=== PATIENT | male | born 1965 | race Caucasian/White ===

== ENCOUNTER → 2016-04-21 | Outpatient (CLI) | payer OTHER ==
[~2016-04-21] MED LIST: ATENOLOL25 MG PO; AUGMENTIN 875 M1 TA1 PO; CARAFATE1 G1 PO; CEFADROXIL500 M1 PO; CEPHALEXIN500 M1 PO; CYCLOBENZAPRINE10 MG PO; DIFLUCAN150 MG PO; LEVOFLOXACIN500 MG PO; MOTRIN800 MG PO; Motrin,Rufen800 MG PO; NEXIUM40 MG/PACK PO; NEXIUM5 MG PO; NKHM; Nizoral 2%15 GM PO; OMEPRAZOLE40 MG PO; PEN-VEE K500 MG PO; PREDNISONE10 MG PO; PREDNISONE20 M1 PO; PRILOSEC20 M2 PO; ROBAXIN500 MG PO; SIMVASTATIN20 MG PO; TRAMADOL HCL50 MG PO; ULTRAM50 MG PO; VICODIN 5/500 505 MG PO; ZESTRIL2.5 MG PO; ZOCOR20 MG PO; ZOFRAN4 MG PO
== END | disposition home or self-care (01) ==
LOC: RAD 14:15
DX: M54.5 Low back pain (principal)

== ENCOUNTER → 2016-07-02 | Outpatient (CLI) | payer OTHER ==
[~2016-07-02] MED LIST changes: +PROTONIX20 MG PO
--- NOTE | ~2016-07-02 | ST ---
[place], [place] EXERCISE STRESS TEST REPORT NAME: PACO RM UNIT #: [id number] ROOM: DOCTOR: SANTOSH FORMAN MD BIRTHDATE: [birth year] DOS: 07/02/2016 REFERRING PHYSICIAN: Dr. Neetu Cruz REASON FOR STUDY: Chest discomfort. PROCEDURE: The patient exercised on a full Rusty protocol stress test for 11 minutes 7 seconds and achieved a maximum heart rate of 144, which represented 85% of his maximum predicted heart rate at a workload of 11.5 METs. He stopped for fatigue and had no chest pain. The resting heart rate of 59 cheri to 144. The resting blood pressure of 130/74 cheri to 180/70. There were no diagnostic electrocardiographic changes. Raygoza treadmill score was 11 consistent with a low risk of heart disease. IMPRESSION: 1. Excellent exercise capacity without chest pain or diagnostic electrocardiographic changes. 2. Normal heart rate and blood pressure response to exercise. 3. No significant arrhythmias noted. 4. Normal stress test consistent with low risk of coronary artery disease. SANTOSH FORMAN MD CM:STRESS:EXERCISE STRESS TEST REPORT [id number] SANTOSH FORMAN MD
== END | disposition home or self-care (01) ==
LOC: CARD 02:07
DX: R07.89 Other chest pain (principal); N52.9 Male erectile dysfunction, unspecified

== ENCOUNTER → 2016-10-17 | Outpatient (CLI) | payer OTHER ==
[2016-10-18 19:10] LABS: FOLLICLE STIMULATING HORMONE 21.3 mIU/mL (1.5-12.4); LUTEINIZING HORMONE 004283 5.4 mIU/mL (1.7-8.6)
== END ==
LOC: LAB 08:24
PROVIDERS: Internal Medicine
DX: E29.1 Testicular hypofunction (principal)

== ENCOUNTER 2017-02-27 19:55 | Emergency (ER) | payer OTHER ==
[~2017-02-27] VITALS: Ht 175.2 cm; Wt 81.6 kg
[2017-02-27] MEDS ORDERED: CEPHALEXIN500 M1 PO (22:04)
== END 2017-02-27 21:42 | disposition home or self-care (01) ==
LOC: ED 19:55
DX: S91.332A Puncture wound without foreign body, left foot, initial encounter (principal); F12.10 Cannabis abuse, uncomplicated; F17.200 Nicotine dependence, unspecified, uncomplicated; Z79.899 Other long term (current) drug therapy; W22.8XXA Striking against or struck by other objects, initial encounter; Y93.89 Activity, other specified; Y92.89 Other specified places as the place of occurrence of the external cause; Y99.9 Unspecified external cause status

== ENCOUNTER 2017-03-17 18:21 | Emergency (ER) | payer OTHER ==
[~2017-03-17] VITALS: Wt 81.6 kg
== END 2017-03-17 20:36 | disposition home or self-care (01) ==
LOC: ED 18:21
DX: S70.12XA Contusion of left thigh, initial encounter (principal); S00.83XA Contusion of other part of head, initial encounter; F12.10 Cannabis abuse, uncomplicated; Z79.899 Other long term (current) drug therapy; V89.2XXA Person injured in unspecified motor-vehicle accident, traffic, initial encounter; Y93.89 Activity, other specified; Y92.89 Other specified places as the place of occurrence of the external cause; Y99.8 Other external cause status

== ENCOUNTER → 2017-07-03 | Outpatient (CLI) | payer OTHER | END | disposition home or self-care (01) | LOC: LAB 14:20 | DX: R89.9 Unspecified abnormal finding in specimens from other organs, systems and tissues (principal) ==

== ENCOUNTER → 2017-07-03 | Outpatient (CLI) | payer OTHER ==
[2017-07-03 08:16] LABS: HEMATOCRIT 44.3 % (42.0-52.0); HEMOGLOBIN 14.5 g/dl (14.0-18.0); MEAN CELL VOLUME 93.1 fl (80.0-94.0); MEAN CORPUSCULAR HGB 30.5 pg (27.0-31.0); MEAN CORPUSCULAR HGB CONC 32.7 g/dl (33.0-37.0); MEAN PLATELET VOLUME 10.7 fl (9.6-12.3); RED BLOOD COUNT 4.76 10*6/uL (4.50-5.90); RED CELL DISTRI WIDTH 13.1 % (0-14.5); WHITE BLOOD COUNT 8.1 10*3/uL (4.8-10.8)
[2017-07-03 08:28] LABS: ALBUMIN 3.7 gm/dl (3.1-4.5); BUN 14 mg/dl (7-24); CHLORIDE 110 mmol/L (98-107); CHOLESTEROL 152 mg/dL (<200); CREATININE 1.18 mg/dL (0.70-1.30); HDL CHOLESTEROL 33 mg/dl (40-60); LDL CHOLESTEROL 96 mg/dL (9-159); POTASSIUM 3.8 mmol/L (3.5-5.1); SGOT/AST 17 IU/L (3-35); SGPT/ALT 24 U/L (12-78); SODIUM 142 mmol/L (136-145); TOTAL PROTEIN 7.3 gm/dL (6.4-8.2); TRIGLYCERIDES 116 mg/dl (<150); VLDL CHOLESTEROL 23 mg/dL (6-40)
[2017-07-03 08:36] LABS: FERRITIN 33.5 ng/mL (22.0-322.0)
[2017-07-03 08:37] LABS: ALKALINE PHOSPHATASE 89 U/L (45-117)
[2017-07-05 12:04] LABS: TESTOSTERONE FREE, (DIRECT) 12.7 pg/mL (7.2-24.0)
== END | disposition home or self-care (01) ==
LOC: LAB 07:17
DX: Z12.5 Encounter for screening for malignant neoplasm of prostate (principal); G25.81 Restless legs syndrome; E29.1 Testicular hypofunction; R79.89 Other specified abnormal findings of blood chemistry

== ENCOUNTER 2017-07-30 21:46 | Emergency (ER) | payer OTHER ==
[~2017-07-30] VITALS: Ht 175.2 cm; Wt 81.6 kg
[2017-07-30] MEDS ORDERED: PREDNISONE20 M1 PO (21:54)
== END 2017-07-30 22:06 | disposition home or self-care (01) ==
LOC: ED 21:46
DX: L23.7 Allergic contact dermatitis due to plants, except food (principal); F17.200 Nicotine dependence, unspecified, uncomplicated; F12.10 Cannabis abuse, uncomplicated; Z79.899 Other long term (current) drug therapy

== ENCOUNTER 2017-09-09 15:50 | Inpatient (IN) | payer OTHER ==
[~2017-09-09] VITALS: Ht 175.2 cm; Wt 73.6 kg
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
[2017-09-09 15:54] VITALS: BP 150/71
[2017-09-09 16:30] LABS: BASO % 0.3 % (0.0-1.0); HEMATOCRIT 44.4 % (42.0-52.0); HEMOGLOBIN 15.1 g/dl (14.0-18.0); LYMPH # 1.8 10*3/uL (1.3-4.4); LYMPH % 18.8 % (27.0-41.0); MEAN CELL VOLUME 91.9 fl (80.0-94.0); MEAN CORPUSCULAR HGB 31.3 pg (27.0-31.0); MEAN PLATELET VOLUME 10.6 fl (9.6-12.3); MONO # 0.4 10*3/uL (0.1-1.0); MONO % 4.5 % (3.0-9.0); NEUT # 7.4 10*3/uL (2.3-7.9); NEUT % 76.1 % (47.0-73.0); PLATELET COUNT AUTOMATED 239 10*3/uL (130-400); RED BLOOD COUNT 4.83 10*6/uL (4.50-5.90); RED CELL DISTRI WIDTH 13.2 % (0-14.5); WHITE BLOOD COUNT 9.7 10*3/uL (4.8-10.8)
[2017-09-09 16:38] LABS: ACT PARTIAL THROMBO TIME 20.2 SECONDS (20.8-31.5)
[2017-09-09 16:48] LABS: ALBUMIN 4.3 gm/dl (3.1-4.5); ALKALINE PHOSPHATASE 101 U/L (45-117); BUN 9 mg/dl (7-24); CHLORIDE 106 mmol/L (98-107); CREATININE 1.36 mg/dL (0.70-1.30); LIPASE 71 U/L (73-393); POTASSIUM 4.3 mmol/L (3.5-5.1); SGOT/AST 13 IU/L (3-35); SGPT/ALT 24 U/L (12-78); SODIUM 142 mmol/L (136-145); TOTAL PROTEIN 7.9 gm/dL (6.4-8.2)
[2017-09-09 16:49] LABS: TROPONIN I < 0.015 ng/ml (<0.045)
[2017-09-09 16:52] VITALS: BP 148/82
[2017-09-09 17:47] LABS: BILIRUBIN 1+ (NEGATIVE); BLOOD NEGATIVE (NEGATIVE); CLARITY SL CLOUDY (CLEAR); COLOR YELLOW (YELLOW); GLUCOSE NEGATIVE (NEGATIVE); KETONE 3+ (NEGATIVE); LEUKO ESTERASE NEGATIVE (NEGATIVE); NITRITE NEGATIVE (NEGATIVE); SPECIFIC GRAVITY 1.015 (1.005-1.030)
[2017-09-09 17:54] LABS: MUCOUS 1+; WBC 0-2 wbc/hpf (0-5)
[2017-09-09 18:00] VITALS: BP 140/71
[2017-09-09 18:18] LABS: URINE AMPHETAMINES < 1000 (1000ng/ml); URINE BARBITURATES < 200 (200ng/ml); URINE BENZODIAZEPINES < 200 (200ng/ml); URINE CANNABINOIDS (THC) > 50 (50ng/ml); URINE COCAINE < 300 (300ng/ml); URINE METHADONE < 300 (300ng/ml); URINE OPIATES < 300 (300ng/ml)
[2017-09-09 18:20] LABS: URINE PHENCYCLIDINE < 25 (25ng/ml)
[2017-09-09 19:12] VITALS: BP 142/80
[2017-09-09 20:15] VITALS: BP 98/54
[2017-09-10] VITALS: BP 96/60
[2017-09-10] MEDS ORDERED: ZANTAC 7575 M1 PO (01:53)
[2017-09-10 02:30] VITALS: BP 102/76
[2017-09-10 06:06] LABS: ALBUMIN 3.3 gm/dl (3.1-4.5); BUN 10 mg/dl (7-24); CHLORIDE 110 mmol/L (98-107); CHOLESTEROL 127 mg/dL (<200); POTASSIUM 3.6 mmol/L (3.5-5.1); SGOT/AST 17 IU/L (3-35); SGPT/ALT 16 U/L (12-78); SODIUM 144 mmol/L (136-145)
[2017-09-10 06:15] LABS: ALKALINE PHOSPHATASE 75 U/L (45-117); BASO % 0.2 % (0.0-1.0); CREATININE 1.09 mg/dL (0.70-1.30); EOS % 0.2 % (1.0-4.0); HDL CHOLESTEROL 31 mg/dl (40-60); LDL CHOLESTEROL 78 mg/dL (9-159); LYMPH # 2.1 10*3/uL (1.3-4.4); MEAN CELL VOLUME 92.9 fl (80.0-94.0); MEAN CORPUSCULAR HGB CONC 33.3 g/dl (33.0-37.0); MEAN PLATELET VOLUME 11.5 fl (9.6-12.3); MONO # 1.1 10*3/uL (0.1-1.0); MONO % 9.5 % (3.0-9.0); NEUT # 8.6 10*3/uL (2.3-7.9); NEUT % 71.8 % (47.0-73.0); PLATELET COUNT AUTOMATED 204 10*3/uL (130-400); RED CELL DISTRI WIDTH 13.4 % (0-14.5); THYROID STIM HORMONE (HS) 0.541 uIU/ml (0.358-4.75); TOTAL PROTEIN 6.3 gm/dL (6.4-8.2); TRIGLYCERIDES 90 mg/dl (<150); VLDL CHOLESTEROL 18 mg/dL (6-40); WHITE BLOOD COUNT 11.9 10*3/uL (4.8-10.8)
[2017-09-10 07:26] LABS: VITAMIN D, 25-HYDROXY 34.3 ng/mL (30-100)
[2017-09-10 08:00] VITALS: BP 92/64
[2017-09-10 16:00] VITALS: BP 107/69
[2017-09-10 20:00] VITALS: BP 131/79
[2017-09-11] VITALS (9 sets, daily range): BP systolic 89–146; BP diastolic 49–85
[2017-09-11 07:43] LABS: BASO % 0.3 % (0.0-1.0); EOS % 0.2 % (1.0-4.0); HEMOGLOBIN 12.2 g/dl (14.0-18.0); LYMPH # 3.9 10*3/uL (1.3-4.4); LYMPH % 42.3 % (27.0-41.0); MEAN CELL VOLUME 93.5 fl (80.0-94.0); MEAN CORPUSCULAR HGB 31.7 pg (27.0-31.0); MEAN CORPUSCULAR HGB CONC 33.9 g/dl (33.0-37.0); MEAN PLATELET VOLUME 11.2 fl (9.6-12.3); MONO % 11.1 % (3.0-9.0); NEUT # 4.2 10*3/uL (2.3-7.9); NEUT % 45.9 % (47.0-73.0); PLATELET COUNT AUTOMATED 169 10*3/uL (130-400); RED BLOOD COUNT 3.85 10*6/uL (4.50-5.90); RED CELL DISTRI WIDTH 13.5 % (0-14.5); WHITE BLOOD COUNT 9.3 10*3/uL (4.8-10.8)
[2017-09-11 08:22] LABS: CHLORIDE 111 mmol/L (98-107); POTASSIUM 3.5 mmol/L (3.5-5.1); SODIUM 142 mmol/L (136-145)
[2017-09-11 08:38] LABS: ALBUMIN 3.2 gm/dl (3.1-4.5); ALKALINE PHOSPHATASE 68 U/L (45-117); BUN 6 mg/dl (7-24); CREATININE 1.04 mg/dL (0.70-1.30); PHOSPHOROUS 2.4 mg/dL (2.5-4.9); SGOT/AST 20 IU/L (3-35); SGPT/ALT 22 U/L (12-78); TOTAL PROTEIN 6.1 gm/dL (6.4-8.2)
[2017-09-12] VITALS: BP 125/83
[2017-09-12 06:16] LABS: HEMATOCRIT 38.2 % (42.0-52.0); HEMOGLOBIN 12.7 g/dl (14.0-18.0); MEAN CELL VOLUME 93.4 fl (80.0-94.0); MEAN CORPUSCULAR HGB 31.1 pg (27.0-31.0); MEAN CORPUSCULAR HGB CONC 33.2 g/dl (33.0-37.0); MEAN PLATELET VOLUME 11.2 fl (9.6-12.3); PLATELET COUNT AUTOMATED 165 10*3/uL (130-400); RED BLOOD COUNT 4.09 10*6/uL (4.50-5.90); RED CELL DISTRI WIDTH 13.2 % (0-14.5); WHITE BLOOD COUNT 12.1 10*3/uL (4.8-10.8)
[2017-09-12 06:39] LABS: BUN 5 mg/dl (7-24); CHLORIDE 108 mmol/L (98-107); CREATININE 1.12 mg/dL (0.70-1.30); POTASSIUM 3.7 mmol/L (3.5-5.1); SODIUM 142 mmol/L (136-145)
[2017-09-12 06:57] LABS: TOTAL CELLS COUNTED 100 #CELLS
[2017-09-12 06:58] LABS: PLATELET SUFFICIENCY NORMAL (NORMAL)
[2017-09-12 08:00] VITALS: BP 114/67
== END 2017-09-12 13:40 | disposition home or self-care (01) | DRG 391 ==
LOC: ED 15:50 → 4E 18:26 → EDHOLD 18:26 → 4E 19:27
PROVIDERS: Internal Medicine Hospice and Palliative Medicine; Physician Assistant
PROC: 0DJD8ZZ Inspection of Lower Intestinal Tract, Via Natural or Artificial Opening Endoscopic (ICD-10-PCS; principal; 2017-09-11)
DX: A08.4 Viral intestinal infection, unspecified (principal); N17.0 Acute kidney failure with tubular necrosis; I42.8 Other cardiomyopathies; E87.2 Acidosis; E83.39 Other disorders of phosphorus metabolism; E44.1 Mild protein-calorie malnutrition; I42.9 Cardiomyopathy, unspecified; E87.8 Other disorders of electrolyte and fluid balance, not elsewhere classified; R82.2 Biliuria; R80.9 Proteinuria, unspecified; R82.4 Acetonuria; I10 Essential (primary) hypertension; E78.5 Hyperlipidemia, unspecified; K29.50 Unspecified chronic gastritis without bleeding; K21.9 Gastro-esophageal reflux disease without esophagitis; I25.5 Ischemic cardiomyopathy; F12.10 Cannabis abuse, uncomplicated; F17.200 Nicotine dependence, unspecified, uncomplicated; D64.9 Anemia, unspecified; E80.6 Other disorders of bilirubin metabolism; R73.9 Hyperglycemia, unspecified; F12.988 Cannabis use, unspecified with other cannabis-induced disorder; Z71.6 Tobacco abuse counseling; Z87.81 Personal history of (healed) traumatic fracture; Z87.891 Personal history of nicotine dependence; Z80.42 Family history of malignant neoplasm of prostate; Z81.8 Family history of other mental and behavioral disorders

== ENCOUNTER → 2018-12-25 | Outpatient (CLI) | payer BC ==
[~2018-12-25] MED LIST changes: +PHENERGAN25 M3 PO; +ZANTAC 7575 M1 PO
[2018-12-25 09:52] LABS: HEMATOCRIT 45.7 % (42.0-52.0); HEMOGLOBIN 15.2 g/dl (14.0-18.0); MEAN CELL VOLUME 95.4 fl (80.0-94.0); MEAN CORPUSCULAR HGB 31.7 pg (27.0-31.0); MEAN CORPUSCULAR HGB CONC 33.3 g/dl (33.0-37.0); MEAN PLATELET VOLUME 10.3 fl (9.6-12.3); RED BLOOD COUNT 4.79 10*6/uL (4.50-5.90); RED CELL DISTRI WIDTH 13.5 % (0-14.5); WHITE BLOOD COUNT 8.3 10*3/uL (4.8-10.8)
[2018-12-25 10:10] LABS: ALBUMIN 3.9 gm/dl (3.1-4.5); ALKALINE PHOSPHATASE 93 U/L (45-117); BUN 12 mg/dl (7-24); CHLORIDE 108 mmol/L (98-107); CHOLESTEROL 164 mg/dL (<200); CREATININE 1.12 mg/dL (0.70-1.30); HDL CHOLESTEROL 36 mg/dl (40-60); LDL CHOLESTEROL 107 mg/dL (9-159); POTASSIUM 4.1 mmol/L (3.5-5.1); SGOT/AST 11 IU/L (3-35); SGPT/ALT 25 U/L (12-78); SODIUM 140 mmol/L (136-145); TOTAL PROTEIN 7.8 gm/dL (6.4-8.2); TRIGLYCERIDES 103 mg/dl (<150); VLDL CHOLESTEROL 21 mg/dL (6-40)
== END | disposition home or self-care (01) ==
LOC: LAB 09:03
PROVIDERS: Physician Assistant
DX: F52.21 Male erectile disorder (principal); K29.60 Other gastritis without bleeding; E78.00 Pure hypercholesterolemia, unspecified; F32.9 Major depressive disorder, single episode, unspecified

== ENCOUNTER 2019-05-31 08:51 | Inpatient (IN) | payer BC ==
[~2019-05-31] VITALS: Ht 175.2 cm; Wt 74.4 kg
[2019-05-31] VITALS (7 sets, daily range): BP systolic 91–156; BP diastolic 46–77
[2019-05-31 09:41] LABS: BASO % 0.3 % (0.0-1.0); EOS % 0.3 % (1.0-4.0); HEMATOCRIT 42.8 % (42.0-52.0); HEMOGLOBIN 14.6 g/dl (14.0-18.0); LYMPH # 3.3 10*3/uL (1.3-4.4); LYMPH % 26.3 % (27.0-41.0); MEAN CELL VOLUME 92.6 fl (80.0-94.0); MEAN CORPUSCULAR HGB 31.6 pg (27.0-31.0); MEAN CORPUSCULAR HGB CONC 34.1 g/dl (33.0-37.0); MONO # 1.1 10*3/uL (0.1-1.0); MONO % 8.6 % (3.0-9.0); NEUT # 7.9 10*3/uL (2.3-7.9); NEUT % 64.3 % (47.0-73.0); PLATELET COUNT AUTOMATED 260 10*3/uL (130-400); RED BLOOD COUNT 4.62 10*6/uL (4.50-5.90); RED CELL DISTRI WIDTH 13.3 % (0-14.5); WHITE BLOOD COUNT 12.4 10*3/uL (4.8-10.8)
[2019-05-31 10:02] LABS: ALBUMIN 4.1 gm/dl (3.1-4.5); ALKALINE PHOSPHATASE 92 U/L (45-117); BUN 19 mg/dl (7-24); CHLORIDE 106 mmol/L (98-107); CREATININE 1.58 mg/dL (0.70-1.30); LIPASE 409 U/L (73-393); SGOT/AST 14 IU/L (3-35); SGPT/ALT 26 U/L (12-78); SODIUM 139 mmol/L (136-145); TOTAL PROTEIN 7.8 gm/dL (6.4-8.2)
--- NOTE | 2019-05-31 10:19 | NUR ---
LYING IN BED LEFT LATERAL. TELLS ME PHENERGAN AND PROTONIX "STARTING TO WORK". REQUESTING TO WAIT FOR GI COCKTAIL.
--- NOTE | 2019-05-31 10:41 | NUR ---
PT TO CT AT THIS TIME
--- NOTE | 2019-05-31 11:12 | NUR ---
RESTING IN BED QUIETLY WITH EYES CLOSED. TELLS ME FEELING BETTER. REMINDED OF NEED TO URINATE FOR SPECIMIN.
[2019-05-31 12:13] LABS: CLARITY SL CLOUDY (CLEAR); COLOR YELLOW (YELLOW)
[2019-05-31 12:14] LABS: BILIRUBIN NEGATIVE (NEGATIVE); BLOOD NEGATIVE (NEGATIVE); GLUCOSE NEGATIVE (NEGATIVE); KETONE 3+ (NEGATIVE); LEUKO ESTERASE NEGATIVE (NEGATIVE); NITRITE NEGATIVE (NEGATIVE); SPECIFIC GRAVITY 1.025 (1.005-1.030); UROBILINOGEN 0.2 E.U./dl (0.2-1.0); WBC 0-2 wbc/hpf (0-5)
[2019-05-31 12:15] LABS: MUCOUS 2+
--- NOTE | 2019-05-31 12:17 | NUR ---
PT TO US AT THIS TIME.
--- NOTE | 2019-05-31 13:50 | NUR ---
A 53, admitted to 5E, under the services of OTONIEL Reeves DO with a diagnosis of GASTRITIS . Chief complaint is NAUSEA AND DRY6 HEAVING'. Patient arrived via WHEELCHAIR from ER. Monitor applied. Initial assessment completed. Vital signs taken and recorded. OTONIEL REEVES DO notified of admission to the unit. Orders received. See assessment for past medical history, medications and allergies. Patient and/or family oriented to unit. [facility] visitation policy reviewed. Clothing/patient valuable form completed. CATE MATHEWS
[2019-05-31] MEDS ORDERED: CITALOPRAM20 MG PO (14:03)
--- NOTE | 2019-05-31 14:30 | NUR ---
DR KING NOTIFIED OF NEW CONSULT FOR GASTRITIS.ORDERS RECIEVED.
--- NOTE | 2019-05-31 14:34 | NUR ---
NOTIFIED DR NAILS MED RECONCILIATION WAS COMPLETE.
[2019-06-01] VITALS (10 sets, daily range): BP systolic 84–149; BP diastolic 43–81
--- NOTE | 2019-06-01 02:01 | NUR ---
24 HR chart check completed.
[2019-06-01 06:22] LABS: BASO # 0.1 10*3/uL (0.0-0.1); BASO % 0.6 % (0.0-1.0); EOS # 0.2 10*3/uL (0.0-0.4); EOS % 1.7 % (1.0-4.0); HEMATOCRIT 37.8 % (42.0-52.0); HEMOGLOBIN 12.4 g/dl (14.0-18.0); LYMPH # 3.8 10*3/uL (1.3-4.4); LYMPH % 42.2 % (27.0-41.0); MEAN CELL VOLUME 94.5 fl (80.0-94.0); MEAN CORPUSCULAR HGB CONC 32.8 g/dl (33.0-37.0); MEAN PLATELET VOLUME 10.5 fl (9.6-12.3); MONO % 10.6 % (3.0-9.0); NEUT # 4.1 10*3/uL (2.3-7.9); NEUT % 44.7 % (47.0-73.0); PLATELET COUNT AUTOMATED 205 10*3/uL (130-400); RED CELL DISTRI WIDTH 13.6 % (0-14.5); WHITE BLOOD COUNT 9.1 10*3/uL (4.8-10.8)
[2019-06-01 06:51] LABS: ACT PARTIAL THROMBO TIME 24.9 SECONDS (20.0-32.1)
[2019-06-01 06:52] LABS: ALBUMIN 3.2 gm/dl (3.1-4.5); BUN 15 mg/dl (7-24); CHLORIDE 114 mmol/L (98-107); CHOLESTEROL 144 mg/dL (<200); CREATININE 1.26 mg/dL (0.70-1.30); FREE T4 1.02 ng/dl (0.76-1.46); PHOSPHOROUS 2.8 mg/dL (2.5-4.9); POTASSIUM 3.9 mmol/L (3.5-5.1); SGOT/AST 13 IU/L (3-35); SGPT/ALT 20 U/L (12-78); SODIUM 144 mmol/L (136-145)
--- NOTE | 2019-06-01 07:00 | NUR ---
VITALS STABLE. ALERT AND ORIENTED X 3. NANDO. CAPILLARY REFILL < 3 SECONDS. SKIN TURGOR NON-TENTING. HEART SOUNDS NORMAL, SINUS BRADYCARDIA- RATE OF 54. BLOOD PRESSURE 118/78. LUNGS CLEAR THROUHGOUT. RESPIRATIONS EASY AND NON-LABORED. PO2 98% ON R/A. ABDOMEN SOFT, NON-TENDER, NON-DISTENDED. BOWEL SOUNDS X 4. IV IN RIGHT ARM INTACT. NO COMPLAINTS AT THIS TIME. WILL CONTINUE TO ASSESS. DANAE GEORGECC
[2019-06-01 07:01] LABS: ALKALINE PHOSPHATASE 67 U/L (45-117); HDL CHOLESTEROL 28 mg/dl (40-60); LDL CHOLESTEROL 90 mg/dL (9-159); THYROID STIM HORMONE (HS) 0.841 uIU/ml (0.358-4.75); TOTAL PROTEIN 6.1 gm/dL (6.4-8.2); TRIGLYCERIDES 132 mg/dl (<150); VLDL CHOLESTEROL 26 mg/dL (6-40)
[2019-06-01 07:43] LABS: VITAMIN D, 25-HYDROXY 33.3 ng/mL (30-100)
--- NOTE | 2019-06-01 10:24 | NUR ---
DR NAILS NOTIFIED THAT PT HAS INCREASED AGITATION AND EXPRESSES THAT HE NEEDS TO LEAVE BECAUSE HE "HAS SO MUCH TO DO AT HOME". PT IS SCHEDULED FOR EGD TODAY AND IS UPDATED ON PLAN OF CARE. NEW ORDERS RECEIVED FOR 0.25 ATIVAN AT THIS TIME. WILL ADD ORDER AND NOTIFY PATIENT.
--- NOTE | 2019-06-01 10:46 | NUR ---
PT TO SURGERY VIA BED. CONDITION STABLE. DANAE YU SPNRCC
--- NOTE | 2019-06-01 13:00 | NUR ---
THE PATIENT HAS RETURNED FROM SURGERY AT THIS TIME. PATIENTS VITAL SIGNS ARE STABLE AT THIS TIME. HE IS A&OX3. NANDO. HEART SOUNDS ARE NORMAL. LUNG SOUNDS ARE CLEAR THROUGHOUT. THERE IS NO STRIDOR PRESENT. ABDOMEN SOFT, NON TENDER, NON DISTENDED. BSX4. CAPILLARY REFILL IS LESS THAN 3 SECONDS. IV INTACT TO THE RIGHT ARM WITH NS INFUSING. UPON ARRIVAL BACK TO THE FLOOR HE WAS COMPLAINING OF NAUSEA WITH SCANT EMESIS EPISODES. PATINET RESTING IN BED AT THIS TIME. ARNOL CHAUDHARY SPJULIOCC
--- NOTE | 2019-06-01 13:06 | NUR ---
PATIENT WAS MEDICATED WITH ZOFRAN 4MG IVP BY SOLEDAD LEVY RN FOR COMPLAINTS OF NAUSEA WITH SCANT EPISODES OF EMESIS. WILL CONTINUE TO MONITOR PATIENT. ARNOL NIETO
--- NOTE | 2019-06-01 13:14 | NUR ---
PT RETURNS FROM SURGERY. REPORT RECEIVED FROM MARIBEL COLLADO. ORDERS GIVEN FOR PT TO BE GERD DIET.
--- NOTE | 2019-06-01 13:26 | NUR ---
ORDERS FOR PROTONIX 40 MG PO ADDED PER ORDERS RECEIVED VIA SURGERY, PER DR KING REQUEST.
--- NOTE | 2019-06-01 15:02 | NUR ---
PT STATES THAT HE IS NAUSEOUS AND HAS HAD ONE EPISODE OF EMESIS. DR NAILS NOTIFIED AND ORDERS OBTAINED FOR PHENERGAN 6.25MG IV X 1 NOW. WILL ADMINISTER WHEN AVAILABLE TO PULL.
--- NOTE | 2019-06-01 15:13 | NUR ---
case management received a call from Maria Antonia at patient's insurance, she stated there is no auth required until patient is in the facility 6 days, if he remains in the facility he will need clinicals send, case management will follow
--- NOTE | 2019-06-01 15:26 | NUR ---
PT GIVEN PHENERGAN AT THIS TIME. WILL MONITOR FOR EFFECTIVENESS. CALL LIGHT IN REACH.
[2019-06-02] VITALS: BP 103/59
[2019-06-02 06:32] LABS: BASO # 0.1 10*3/uL (0.0-0.1); BASO % 0.5 % (0.0-1.0); EOS # 0.2 10*3/uL (0.0-0.4); HEMATOCRIT 40.3 % (42.0-52.0); HEMOGLOBIN 13.1 g/dl (14.0-18.0); LYMPH # 3.5 10*3/uL (1.3-4.4); LYMPH % 34.5 % (27.0-41.0); MEAN CELL VOLUME 93.1 fl (80.0-94.0); MEAN CORPUSCULAR HGB 30.3 pg (27.0-31.0); MEAN CORPUSCULAR HGB CONC 32.5 g/dl (33.0-37.0); MEAN PLATELET VOLUME 10.6 fl (9.6-12.3); MONO # 1.2 10*3/uL (0.1-1.0); MONO % 11.6 % (3.0-9.0); NEUT # 5.2 10*3/uL (2.3-7.9); NEUT % 51.2 % (47.0-73.0); PLATELET COUNT AUTOMATED 215 10*3/uL (130-400); RED BLOOD COUNT 4.33 10*6/uL (4.50-5.90)
[2019-06-02 07:01] LABS: ALBUMIN 3.4 gm/dl (3.1-4.5); ALKALINE PHOSPHATASE 70 U/L (45-117); BUN 10 mg/dl (7-24); CHLORIDE 112 mmol/L (98-107); CREATININE 1.28 mg/dL (0.70-1.30); POTASSIUM 3.9 mmol/L (3.5-5.1); SGOT/AST 11 IU/L (3-35); SGPT/ALT 21 U/L (12-78); SODIUM 144 mmol/L (136-145); TOTAL PROTEIN 6.5 gm/dL (6.4-8.2)
[2019-06-02 08:00] VITALS: BP 128/69; BP 130/80
--- NOTE | 2019-06-02 09:00 | NUR ---
[employer] Supervisor in to talk to patient. Patient states lives at home with alone. There are no steps in the home. Physician: anjana smith [facility] Patient's level of ADLs: INDEPENDENT Patient has working utilities: all working DME: none Follow-up physician's appointment after d/c: will be made by hospitalist nurse director upon discharge Does patient want to access PORTAL?: no Discharge plan discussed with patient,, he states he is indepenedent in adls and ambulation, works, drives, he states he will return home when medically stable and denies any home needs. KELLEE BARRY
[2019-06-02] MEDS ORDERED: PROTONIX40 MG PO (11:57)
[2019-06-02] MEDS ORDERED: Carafate1 GM PO (11:57)
--- NOTE | 2019-06-02 12:11 | NUR ---
Discharge instructions reviewed with patient/family. Patient receptive and verbalizes understanding. Follow-up care arranged. Written instructions given to patient/family. PRESCRIPTIONS SENT TO PHARMACY, PT TO [facility]PERATOR. AMBULATORY OFF FLOOR. HEPLOCK DISCONTINUED. EZRA MCMAHON
== END 2019-06-02 12:11 | disposition home or self-care (01) | DRG 380 ==
LOC: ED 08:51 → 5E 12:06 → EDHOLD 12:06 → 5E 13:30
PROVIDERS: Internal Medicine; Nurse Practitioner Family; ADMIT Internal Medicine
PROC: 0DB38ZX Excision of Lower Esophagus, Via Natural or Artificial Opening Endoscopic, Diagnostic (ICD-10-PCS; principal; 2019-06-01)
PROC: 0DB68ZX Excision of Stomach, Via Natural or Artificial Opening Endoscopic, Diagnostic (ICD-10-PCS; principal; 2019-06-01)
DX: K22.10 Ulcer of esophagus without bleeding (principal); N17.0 Acute kidney failure with tubular necrosis; E87.2 Acidosis; R17 Unspecified jaundice; F10.99 Alcohol use, unspecified with unspecified alcohol-induced disorder; I42.8 Other cardiomyopathies; E44.1 Mild protein-calorie malnutrition; R73.9 Hyperglycemia, unspecified; F17.210 Nicotine dependence, cigarettes, uncomplicated; E78.5 Hyperlipidemia, unspecified; I10 Essential (primary) hypertension; K21.9 Gastro-esophageal reflux disease without esophagitis; K29.50 Unspecified chronic gastritis without bleeding; F12.988 Cannabis use, unspecified with other cannabis-induced disorder; D53.9 Nutritional anemia, unspecified; E87.8 Other disorders of electrolyte and fluid balance, not elsewhere classified; E83.41 Hypermagnesemia; N40.0 Benign prostatic hyperplasia without lower urinary tract symptoms; J45.909 Unspecified asthma, uncomplicated; F32.9 Major depressive disorder, single episode, unspecified; Z68.24 Body mass index [BMI] 24.0-24.9, adult; Z71.6 Tobacco abuse counseling; Z79.899 Other long term (current) drug therapy; Z83.3 Family history of diabetes mellitus; Z80.0 Family history of malignant neoplasm of digestive organs; Z80.42 Family history of malignant neoplasm of prostate; Z80.49 Family history of malignant neoplasm of other genital organs

== ENCOUNTER → 2019-11-05 | Outpatient (CLI) | payer BC ==
[~2019-11-05] MED LIST changes: +CITALOPRAM20 MG PO; +Carafate1 GM PO; +PROTONIX40 MG PO
[2019-11-05 11:36] LABS: HEMATOCRIT 43.5 % (42.0-52.0); MEAN CELL VOLUME 92.4 fl (80.0-94.0); MEAN CORPUSCULAR HGB 30.6 pg (27.0-31.0); MEAN CORPUSCULAR HGB CONC 33.1 g/dl (33.0-37.0); MEAN PLATELET VOLUME 10.1 fl (9.6-12.3); RED BLOOD COUNT 4.71 10*6/uL (4.50-5.90); RED CELL DISTRI WIDTH 13.2 % (0-14.5); WHITE BLOOD COUNT 7.8 10*3/uL (4.8-10.8)
[2019-11-05 12:05] LABS: ALBUMIN 3.8 gm/dl (3.1-4.5); ALKALINE PHOSPHATASE 82 U/L (45-117); BUN 14 mg/dl (7-24); CHLORIDE 110 mmol/L (98-107); CHOLESTEROL 154 mg/dL (<200); CREATININE 1.16 mg/dL (0.70-1.30); HDL CHOLESTEROL 40 mg/dl (40-60); LDL CHOLESTEROL 99 mg/dL (9-159); POTASSIUM 4.1 mmol/L (3.5-5.1); SGOT/AST 19 IU/L (3-35); SGPT/ALT 28 U/L (12-78); SODIUM 139 mmol/L (136-145); TOTAL PROTEIN 7.6 gm/dL (6.4-8.2); TRIGLYCERIDES 75 mg/dl (<150); VLDL CHOLESTEROL 15 mg/dL (6-40)
== END | disposition home or self-care (01) ==
LOC: LAB 11:04
PROVIDERS: Physician Assistant
DX: E78.00 Pure hypercholesterolemia, unspecified (principal); F17.210 Nicotine dependence, cigarettes, uncomplicated; N52.9 Male erectile dysfunction, unspecified

== ENCOUNTER 2020-05-09 17:39 | Emergency (ER) | payer BC ==
[~2020-05-09] VITALS: Ht 175.2 cm; Wt 77.6 kg
[2020-05-09 18:23] LABS: BASO % 0.2 % (0.0-1.0); EOS % 0.1 % (1.0-4.0); HEMATOCRIT 41.7 % (42.0-52.0); LYMPH % 19.9 % (27.0-41.0); MEAN CELL VOLUME 89.7 fl (80.0-94.0); MEAN CORPUSCULAR HGB 30.3 pg (27.0-31.0); MEAN CORPUSCULAR HGB CONC 33.8 g/dl (33.0-37.0); MEAN PLATELET VOLUME 10.5 fl (9.6-12.3); MONO # 1.3 10*3/uL (0.1-1.0); MONO % 8.3 % (3.0-9.0); NEUT # 10.8 10*3/uL (2.3-7.9); NEUT % 71.2 % (47.0-73.0); PLATELET COUNT AUTOMATED 235 10*3/uL (130-400); RED BLOOD COUNT 4.65 10*6/uL (4.50-5.90); RED CELL DISTRI WIDTH 12.9 % (0-14.5); WHITE BLOOD COUNT 15.2 10*3/uL (4.8-10.8)
[2020-05-09 18:37] LABS: ALBUMIN 3.9 gm/dl (3.1-4.5); ALKALINE PHOSPHATASE 93 U/L (45-117); BUN 17 mg/dl (7-24); CHLORIDE 104 mmol/L (98-107); CREATININE 1.28 mg/dL (0.70-1.30); POTASSIUM 3.9 mmol/L (3.5-5.1); SGOT/AST 14 IU/L (3-35); SGPT/ALT 31 U/L (12-78); SODIUM 136 mmol/L (136-145); TOTAL PROTEIN 7.6 gm/dL (6.4-8.2)
== END 2020-05-09 19:33 | disposition home or self-care (01) ==
LOC: ED 17:39
PROVIDERS: Nurse Practitioner Family
DX: R11.2 Nausea with vomiting, unspecified (principal); F17.200 Nicotine dependence, unspecified, uncomplicated; F12.10 Cannabis abuse, uncomplicated; Z79.899 Other long term (current) drug therapy

== ENCOUNTER → 2020-08-04 | Outpatient (CLI) | payer BC ==
[2020-08-04 10:05] LABS: HEMATOCRIT 44.4 % (42.0-52.0); MEAN CELL VOLUME 94.9 fl (80.0-94.0); MEAN CORPUSCULAR HGB 31.2 pg (27.0-31.0); MEAN CORPUSCULAR HGB CONC 32.9 g/dl (33.0-37.0); MEAN PLATELET VOLUME 10.6 fl (9.6-12.3); RED BLOOD COUNT 4.68 10*6/uL (4.50-5.90); RED CELL DISTRI WIDTH 13.7 % (0-14.5); WHITE BLOOD COUNT 8.1 10*3/uL (4.8-10.8)
[2020-08-04 10:24] LABS: ALBUMIN 3.7 gm/dl (3.1-4.5); BUN 16 mg/dl (7-24); CHLORIDE 109 mmol/L (98-107); CHOLESTEROL 180 mg/dL (<200); CREATININE 1.19 mg/dL (0.70-1.30); POTASSIUM 4.4 mmol/L (3.5-5.1); SGOT/AST 13 IU/L (3-35); SGPT/ALT 23 U/L (12-78); SODIUM 141 mmol/L (136-145); TOTAL PROTEIN 7.4 gm/dL (6.4-8.2); TRIGLYCERIDES 121 mg/dl (<150); VLDL CHOLESTEROL 24 mg/dL (6-40)
[2020-08-04 10:25] LABS: ALKALINE PHOSPHATASE 92 U/L (45-117); HDL CHOLESTEROL 34 mg/dl (40-60); LDL CHOLESTEROL 122 mg/dL (9-159)
== END | disposition home or self-care (01) ==
LOC: LAB 09:10
PROVIDERS: ATTEND Physician Assistant
DX: K21.9 Gastro-esophageal reflux disease without esophagitis (principal); F41.9 Anxiety disorder, unspecified; Z12.5 Encounter for screening for malignant neoplasm of prostate; E78.00 Pure hypercholesterolemia, unspecified

== ENCOUNTER 2020-08-18 05:18 | Emergency (ER) | payer BC ==
[~2020-08-18] VITALS: Ht 175.2 cm; Wt 75.3 kg
[2020-08-18 06:28] LABS: BASO % 0.4 % (0.0-1.0); EOS % 0.3 % (1.0-4.0); HEMATOCRIT 40.8 % (42.0-52.0); LYMPH # 2.8 10*3/uL (1.3-4.4); MEAN CELL VOLUME 91.7 fl (80.0-94.0); MEAN CORPUSCULAR HGB 30.8 pg (27.0-31.0); MEAN CORPUSCULAR HGB CONC 33.6 g/dl (33.0-37.0); MEAN PLATELET VOLUME 10.2 fl (9.6-12.3); MONO % 10.1 % (3.0-9.0); NEUT # 5.9 10*3/uL (2.3-7.9); PLATELET COUNT AUTOMATED 238 10*3/uL (130-400); RED BLOOD COUNT 4.45 10*6/uL (4.50-5.90); RED CELL DISTRI WIDTH 13.1 % (0-14.5); WHITE BLOOD COUNT 9.8 10*3/uL (4.8-10.8)
[2020-08-18 06:41] LABS: ALBUMIN 3.6 gm/dl (3.1-4.5); ALKALINE PHOSPHATASE 93 U/L (45-117); BUN 17 mg/dl (7-24); CHLORIDE 108 mmol/L (98-107); CREATININE 1.31 mg/dL (0.70-1.30); POTASSIUM 3.8 mmol/L (3.5-5.1); SGOT/AST 11 IU/L (3-35); SGPT/ALT 22 U/L (12-78); SODIUM 139 mmol/L (136-145); TOTAL PROTEIN 7.4 gm/dL (6.4-8.2)
[2020-08-18] MEDS ORDERED: ZOFRAN4 MG PO (09:05)
[2020-08-18 10:26] LABS: BILIRUBIN Negative (Negative); BLOOD Negative (Negative); CLARITY Clear (Clear); COLOR Dark Yellow (Yellow); GLUCOSE Negative (Negative); KETONE 1+ (Negative); LEUKO ESTERASE Negative (Negative); NITRITE Negative (Negative); SPECIFIC GRAVITY >= 1.030 (1.001-1.030)
[2020-08-18 10:36] LABS: URINE AMPHETAMINES < 1000 (1000ng/ml); URINE BARBITURATES < 200 (200ng/ml); URINE BENZODIAZEPINES < 200 (200ng/ml); URINE CANNABINOIDS (THC) > 50 (50ng/ml); URINE COCAINE < 300 (300ng/ml); URINE METHADONE < 300 (300ng/ml); URINE OPIATES < 300 (300ng/ml)
[2020-08-18 10:38] LABS: URINE PHENCYCLIDINE < 25 (25ng/ml)
[2020-08-18 10:43] LABS: BACTERIA TRACE; MUCOUS 3+
== END 2020-08-18 11:04 | disposition home or self-care (01) ==
LOC: ED 05:18
PROVIDERS: Emergency Medicine
DX: R11.2 Nausea with vomiting, unspecified (principal); F12.10 Cannabis abuse, uncomplicated; K21.9 Gastro-esophageal reflux disease without esophagitis; E78.5 Hyperlipidemia, unspecified; F17.210 Nicotine dependence, cigarettes, uncomplicated; Z79.899 Other long term (current) drug therapy

== ENCOUNTER 2020-10-23 02:33 | Emergency (ER) | payer BC ==
[~2020-10-23] VITALS: Ht 177.8 cm; Wt 68.0 kg
[2020-10-23 03:28] LABS: BASO % 0.3 % (0.0-1.0); EOS % 0.3 % (1.0-4.0); HEMATOCRIT 40.2 % (42.0-52.0); LYMPH # 2.9 10*3/uL (1.3-4.4); LYMPH % 25.4 % (27.0-41.0); MEAN CELL VOLUME 91.4 fl (80.0-94.0); MEAN CORPUSCULAR HGB 30.7 pg (27.0-31.0); MEAN CORPUSCULAR HGB CONC 33.6 g/dl (33.0-37.0); MEAN PLATELET VOLUME 10.2 fl (9.6-12.3); MONO # 1.2 10*3/uL (0.1-1.0); MONO % 10.6 % (3.0-9.0); NEUT # 7.2 10*3/uL (2.3-7.9); NEUT % 63.1 % (47.0-73.0); PLATELET COUNT AUTOMATED 228 10*3/uL (130-400); RED CELL DISTRI WIDTH 13.4 % (0-14.5); WHITE BLOOD COUNT 11.4 10*3/uL (4.8-10.8)
[2020-10-23 03:45] LABS: ALBUMIN 3.6 gm/dl (3.1-4.5); ALKALINE PHOSPHATASE 90 U/L (45-117); BUN 15 mg/dl (7-24); CHLORIDE 111 mmol/L (98-107); CREATININE 1.22 mg/dL (0.70-1.30); LIPASE 255 U/L (73-393); POTASSIUM 3.4 mmol/L (3.5-5.1); SGOT/AST 9 IU/L (3-35); SGPT/ALT 21 U/L (12-78); SODIUM 139 mmol/L (136-145); TOTAL PROTEIN 7.1 gm/dL (6.4-8.2)
[2020-10-23] MEDS ORDERED: ZOFRAN4 MG PO (03:58)
[2020-10-24] MEDS ORDERED: PEPCID20 MG PO (14:23)
[2020-10-24] MEDS ORDERED: PHENERGAN25 M3 PO (14:23)
== END 2020-10-23 04:03 | disposition home or self-care (01) ==
LOC: ED 02:33
PROVIDERS: Internal Medicine
DX: R11.15 Cyclical vomiting syndrome unrelated to migraine (principal); E87.6 Hypokalemia; R10.10 Upper abdominal pain, unspecified; F17.200 Nicotine dependence, unspecified, uncomplicated; F12.10 Cannabis abuse, uncomplicated; Z79.899 Other long term (current) drug therapy

== ENCOUNTER 2020-10-24 10:12 | Emergency (ER) | payer BC ==
[~2020-10-24] VITALS: Wt 77.1 kg
[2020-10-24 10:43] LABS: BASO % 0.4 % (0.0-1.0); EOS # 0.1 10*3/uL (0.0-0.4); EOS % 0.5 % (1.0-4.0); HEMATOCRIT 40.9 % (42.0-52.0); LYMPH # 2.7 10*3/uL (1.3-4.4); LYMPH % 24.5 % (27.0-41.0); MEAN CELL VOLUME 90.3 fl (80.0-94.0); MEAN CORPUSCULAR HGB 30.9 pg (27.0-31.0); MEAN CORPUSCULAR HGB CONC 34.2 g/dl (33.0-37.0); MEAN PLATELET VOLUME 10.1 fl (9.6-12.3); MONO # 0.9 10*3/uL (0.1-1.0); MONO % 7.9 % (3.0-9.0); NEUT # 7.3 10*3/uL (2.3-7.9); NEUT % 66.4 % (47.0-73.0); PLATELET COUNT AUTOMATED 250 10*3/uL (130-400); RED BLOOD COUNT 4.53 10*6/uL (4.50-5.90); RED CELL DISTRI WIDTH 13.2 % (0-14.5)
[2020-10-24 10:59] LABS: ALBUMIN 3.7 gm/dl (3.1-4.5); ALKALINE PHOSPHATASE 90 U/L (45-117); BUN 11 mg/dl (7-24); CHLORIDE 107 mmol/L (98-107); CREATININE 1.17 mg/dL (0.70-1.30); LIPASE 59 U/L (73-393); POTASSIUM 3.8 mmol/L (3.5-5.1); SGOT/AST 12 IU/L (3-35); SGPT/ALT 20 U/L (12-78); SODIUM 134 mmol/L (136-145); TOTAL PROTEIN 7.4 gm/dL (6.4-8.2)
[2020-10-24] MEDS ORDERED: PEPCID20 MG PO (14:23)
[2020-10-24] MEDS ORDERED: PHENERGAN25 M3 PO (14:23)
== END 2020-10-24 14:59 | disposition home or self-care (01) ==
LOC: ED 10:12
PROVIDERS: Emergency Medicine
DX: R11.2 Nausea with vomiting, unspecified (principal); R10.13 Epigastric pain; F17.200 Nicotine dependence, unspecified, uncomplicated; Z79.899 Other long term (current) drug therapy; Z98.890 Other specified postprocedural states

== ENCOUNTER 2020-11-21 10:42 | Emergency (ER) | payer BC ==
[~2020-11-21] VITALS: Wt 77.1 kg
[~2020-11-21 10:42] MED LIST changes: +PEPCID20 MG PO
[2020-11-21 12:01] LABS: BASO % 0.5 % (0.0-1.0); EOS # 0.1 10*3/uL (0.0-0.4); EOS % 0.6 % (1.0-4.0); HEMATOCRIT 39.7 % (42.0-52.0); LYMPH # 3.4 10*3/uL (1.3-4.4); LYMPH % 38.4 % (27.0-41.0); MEAN CELL VOLUME 91.7 fl (80.0-94.0); MEAN CORPUSCULAR HGB 30.9 pg (27.0-31.0); MEAN CORPUSCULAR HGB CONC 33.8 g/dl (33.0-37.0); MEAN PLATELET VOLUME 10.1 fl (9.6-12.3); MONO # 0.7 10*3/uL (0.1-1.0); MONO % 8.4 % (3.0-9.0); NEUT # 4.6 10*3/uL (2.3-7.9); NEUT % 51.9 % (47.0-73.0); PLATELET COUNT AUTOMATED 220 10*3/uL (130-400); RED BLOOD COUNT 4.33 10*6/uL (4.50-5.90); RED CELL DISTRI WIDTH 13.2 % (0-14.5); WHITE BLOOD COUNT 8.8 10*3/uL (4.8-10.8)
[2020-11-21 12:18] LABS: ALBUMIN 3.5 gm/dl (3.1-4.5); ALKALINE PHOSPHATASE 83 U/L (45-117); BUN 13 mg/dl (7-24); CHLORIDE 109 mmol/L (98-107); CREATININE 1.14 mg/dL (0.70-1.30); LIPASE 68 U/L (73-393); SGOT/AST 10 IU/L (3-35); SGPT/ALT 22 U/L (12-78); SODIUM 139 mmol/L (136-145); TOTAL PROTEIN 6.9 gm/dL (6.4-8.2)
[2020-11-21 12:21] LABS: BILIRUBIN Negative (Negative); BLOOD Negative (Negative); CLARITY Clear (Clear); COLOR Yellow (Yellow); GLUCOSE Negative (Negative); KETONE Trace (Negative); LEUKO ESTERASE Trace (Negative); NITRITE Negative (Negative); PH 7.5 (4.5-8.0); SPECIFIC GRAVITY 1.025 (1.001-1.030)
[2020-11-21 12:37] LABS: BACTERIA 1+; MUCOUS 1+
[2020-11-21] MEDS ORDERED: SEPTDS PO (13:51)
== END 2020-11-21 13:59 | disposition home or self-care (01) ==
LOC: ED 10:42
PROVIDERS: Physician Assistant
DX: R11.2 Nausea with vomiting, unspecified (principal); R31.9 Hematuria, unspecified; F17.200 Nicotine dependence, unspecified, uncomplicated; Z79.899 Other long term (current) drug therapy

== ENCOUNTER → 2020-12-20 | Day surgery (SDC) | payer BC ==
[~2020-12-20] VITALS: Ht 175.2 cm; Wt 74.8 kg
[~2020-12-20] MED LIST changes: +SEPTDS PO
[2020-12-20 06:52] VITALS: BP 107/67
[2020-12-20 07:45] VITALS: BP 98/66
[2020-12-20 07:58] VITALS: BP 103/70
[2020-12-20 08:15] VITALS: BP 111/72
== END | disposition home or self-care (01) ==
LOC: SDC 12-17 12:30
PROVIDERS: ATTEND Surgery
DX: R11.2 Nausea with vomiting, unspecified (principal); K29.50 Unspecified chronic gastritis without bleeding; K21.9 Gastro-esophageal reflux disease without esophagitis; I10 Essential (primary) hypertension; E78.5 Hyperlipidemia, unspecified; F32.9 Major depressive disorder, single episode, unspecified; F41.9 Anxiety disorder, unspecified; F17.210 Nicotine dependence, cigarettes, uncomplicated; Z79.899 Other long term (current) drug therapy; Z20.822 Contact with and (suspected) exposure to COVID-19

== ENCOUNTER 2020-12-26 01:53 | Emergency (ER) | payer BC ==
[2020-12-26 02:49] LABS: BASO # 0.1 10*3/uL (0.0-0.1); BASO % 0.5 % (0.0-1.0); EOS # 0.1 10*3/uL (0.0-0.4); EOS % 0.8 % (1.0-4.0); HEMATOCRIT 41.3 % (42.0-52.0); LYMPH # 3.5 10*3/uL (1.3-4.4); LYMPH % 33.7 % (27.0-41.0); MEAN CELL VOLUME 90.6 fl (80.0-94.0); MEAN CORPUSCULAR HGB 30.7 pg (27.0-31.0); MEAN CORPUSCULAR HGB CONC 33.9 g/dl (33.0-37.0); MONO # 1.1 10*3/uL (0.1-1.0); MONO % 10.5 % (3.0-9.0); NEUT # 5.6 10*3/uL (2.3-7.9); NEUT % 54.3 % (47.0-73.0); PLATELET COUNT AUTOMATED 276 10*3/uL (130-400); RED BLOOD COUNT 4.56 10*6/uL (4.50-5.90); RED CELL DISTRI WIDTH 13.4 % (0-14.5); WHITE BLOOD COUNT 10.4 10*3/uL (4.8-10.8)
[2020-12-26 03:01] LABS: BUN 15 mg/dl (7-24); CHLORIDE 109 mmol/L (98-107); CREATININE 1.34 mg/dL (0.70-1.30); SODIUM 139 mmol/L (136-145)
[2020-12-26] MEDS ORDERED: ZOFRAN4 MG PO (03:27)
== END 2020-12-26 03:29 | disposition home or self-care (01) ==
LOC: ED 01:53
PROVIDERS: Internal Medicine
DX: R11.15 Cyclical vomiting syndrome unrelated to migraine (principal); F17.200 Nicotine dependence, unspecified, uncomplicated

== ENCOUNTER → 2021-03-12 | Outpatient (CLI) | payer BC | END | disposition home or self-care (01) | LOC: COVID19 15:56 | PROVIDERS: ATTEND Internal Medicine | DX: Z11.52 Encounter for screening for COVID-19 (principal) ==

== ENCOUNTER → 2021-04-23 | Outpatient (CLI) | payer BC | END | disposition home or self-care (01) | LOC: COVID19 15:50 | PROVIDERS: ATTEND Internal Medicine | DX: U07.1 COVID-19 (principal) ==

== ENCOUNTER 2021-06-22 06:00 | Emergency (ER) | payer BC ==
[2021-06-22 06:23] LABS: BASO % 0.4 % (0.0-1.0); EOS % 0.2 % (1.0-4.0); HEMATOCRIT 42.4 % (42.0-52.0); LYMPH # 2.6 10*3/uL (1.3-4.4); LYMPH % 23.4 % (27.0-41.0); MEAN CELL VOLUME 89.8 fl (80.0-94.0); MEAN CORPUSCULAR HGB 31.6 pg (27.0-31.0); MEAN CORPUSCULAR HGB CONC 35.1 g/dl (33.0-37.0); MEAN PLATELET VOLUME 10.1 fl (9.6-12.3); MONO # 0.7 10*3/uL (0.1-1.0); MONO % 6.3 % (3.0-9.0); NEUT # 7.8 10*3/uL (2.3-7.9); NEUT % 69.3 % (47.0-73.0); PLATELET COUNT AUTOMATED 262 10*3/uL (130-400); RED BLOOD COUNT 4.72 10*6/uL (4.50-5.90); RED CELL DISTRI WIDTH 13.2 % (0-14.5); WHITE BLOOD COUNT 11.2 10*3/uL (4.8-10.8)
[2021-06-22] MEDS ORDERED: CELEXA20 MG PO (06:28)
[2021-06-22 06:37] LABS: CREATININE 1.58 mg/dL (0.70-1.30); POTASSIUM 3.9 mmol/L (3.5-5.1); TOTAL PROTEIN 8.5 gm/dL (6.4-8.2)
[2021-06-22] MEDS ORDERED: ZOFRAN4 MG PO (08:12)
== END 2021-06-22 08:18 | disposition home or self-care (01) ==
LOC: ED 06:00
PROVIDERS: Internal Medicine
DX: R11.10 Vomiting, unspecified (principal); F12.10 Cannabis abuse, uncomplicated; Z79.899 Other long term (current) drug therapy; Z87.891 Personal history of nicotine dependence

== ENCOUNTER → 2021-09-28 | Outpatient (CLI) | payer BC ==
[~2021-09-28] MED LIST changes: +CELEXA20 MG PO
[2021-09-28 08:15] LABS: HEMATOCRIT 43.8 % (42.0-52.0); MEAN CELL VOLUME 92.4 fl (80.0-94.0); MEAN CORPUSCULAR HGB CONC 33.6 g/dl (33.0-37.0); MEAN PLATELET VOLUME 9.6 fl (9.6-12.3); RED BLOOD COUNT 4.74 10*6/uL (4.50-5.90); RED CELL DISTRI WIDTH 13.3 % (0-14.5); WHITE BLOOD COUNT 8.4 10*3/uL (4.8-10.8)
[2021-09-28 08:41] LABS: ALKALINE PHOSPHATASE 93 U/L (45-117); BUN 16 mg/dl (7-24); CHLORIDE 114 mmol/L (98-107); CHOLESTEROL 152 mg/dL (<200); CREATININE 1.05 mg/dL (0.70-1.30); LDL CHOLESTEROL 93 mg/dL (9-159); POTASSIUM 4.5 mmol/L (3.5-5.1); SGOT/AST 17 IU/L (3-35); SGPT/ALT 25 U/L (12-78); SODIUM 143 mmol/L (136-145); TOTAL PROTEIN 7.2 gm/dL (6.4-8.2); TRIGLYCERIDES 134 mg/dl (<150)
== END | disposition home or self-care (01) ==
LOC: LAB 08:02
PROVIDERS: ATTEND Physician Assistant
DX: K21.9 Gastro-esophageal reflux disease without esophagitis (principal); E78.00 Pure hypercholesterolemia, unspecified; Z12.5 Encounter for screening for malignant neoplasm of prostate; M25.562 Pain in left knee; M25.561 Pain in right knee; M25.522 Pain in left elbow; M25.521 Pain in right elbow; F17.210 Nicotine dependence, cigarettes, uncomplicated

== ENCOUNTER 2021-10-11 05:52 | Emergency (ER) | payer BC ==
[~2021-10-11] VITALS: Ht 175.2 cm; Wt 77.1 kg
[2021-10-11 07:26] LABS: BASO % 0.3 % (0.0-1.0); EOS % 0.4 % (1.0-4.0); LYMPH # 2.9 10*3/uL (1.3-4.4); LYMPH % 27.7 % (27.0-41.0); MEAN CELL VOLUME 91.3 fl (80.0-94.0); MEAN CORPUSCULAR HGB 31.5 pg (27.0-31.0); MEAN CORPUSCULAR HGB CONC 34.5 g/dl (33.0-37.0); MEAN PLATELET VOLUME 10.1 fl (9.6-12.3); MONO # 1.1 10*3/uL (0.1-1.0); MONO % 10.7 % (3.0-9.0); NEUT # 6.3 10*3/uL (2.3-7.9); NEUT % 60.6 % (47.0-73.0); PLATELET COUNT AUTOMATED 233 10*3/uL (130-400); RED BLOOD COUNT 4.16 10*6/uL (4.50-5.90); RED CELL DISTRI WIDTH 13.4 % (0-14.5); WHITE BLOOD COUNT 10.4 10*3/uL (4.8-10.8)
[2021-10-11 07:40] LABS: ALKALINE PHOSPHATASE 83 U/L (45-117); BUN 12 mg/dl (7-24); CHLORIDE 106 mmol/L (98-107); CREATININE 1.09 mg/dL (0.70-1.30); LIPASE 69 U/L (73-393); POTASSIUM 3.9 mmol/L (3.5-5.1); SGOT/AST 14 IU/L (3-35); SGPT/ALT 21 U/L (12-78); SODIUM 135 mmol/L (136-145); TOTAL PROTEIN 7.2 gm/dL (6.4-8.2)
[2021-10-11 08:17] LABS: BILIRUBIN Negative (Negative); BLOOD Negative (Negative); CLARITY Clear (Clear); COLOR Yellow (Yellow); GLUCOSE Negative (Negative); KETONE 2+ (Negative); LEUKO ESTERASE Negative (Negative); NITRITE Negative (Negative); PH 6.5 (4.5-8.0)
[2021-10-11 08:27] LABS: URINE AMPHETAMINES < 1000 (1000ng/ml); URINE BARBITURATES < 200 (200ng/ml); URINE BENZODIAZEPINES < 200 (200ng/ml); URINE CANNABINOIDS (THC) > 50 (50ng/ml); URINE COCAINE < 300 (300ng/ml); URINE METHADONE < 300 (300ng/ml); URINE OPIATES < 300 (300ng/ml)
[2021-10-11 08:29] LABS: MUCOUS TRACE
[2021-10-11 08:36] LABS: URINE PHENCYCLIDINE < 25 (25ng/ml)
[2021-10-11] MEDS ORDERED: ZOFRAN4 MG PO (08:44)
== END 2021-10-11 09:00 | disposition home or self-care (01) ==
LOC: ED 05:52
PROVIDERS: Emergency Medicine; Family Medicine
DX: R11.15 Cyclical vomiting syndrome unrelated to migraine (principal); Z79.899 Other long term (current) drug therapy; F17.200 Nicotine dependence, unspecified, uncomplicated

== ENCOUNTER → 2021-12-20 | Outpatient (CLI) | payer BC | END | disposition home or self-care (01) | LOC: ORTHO 00:44 | PROVIDERS: ATTEND Orthopaedic Surgery | DX: M25.721 Osteophyte, right elbow (principal) ==

== ENCOUNTER → 2022-04-05 | Outpatient (CLI) | payer BC ==
[2022-04-05 09:35] LABS: HEMATOCRIT 42.8 % (42.0-52.0); MEAN CELL VOLUME 90.9 fl (80.0-94.0); MEAN CORPUSCULAR HGB 29.9 pg (27.0-31.0); MEAN CORPUSCULAR HGB CONC 32.9 g/dl (33.0-37.0); MEAN PLATELET VOLUME 9.7 fl (9.6-12.3); RED BLOOD COUNT 4.71 10*6/uL (4.50-5.90); RED CELL DISTRI WIDTH 13.7 % (0-14.5); WHITE BLOOD COUNT 6.9 10*3/uL (4.8-10.8)
[2022-04-05 10:06] LABS: ALKALINE PHOSPHATASE 91 U/L (46-116); BUN 10 mg/dl (9-23); CHLORIDE 111 mmol/L (98-107); CHOLESTEROL 158 mg/dL (<200); CREATININE 1.01 mg/dL (0.70-1.30); LDL CHOLESTEROL 109 mg/dL (9-159); POTASSIUM 4.2 mmol/L (3.4-5.1); SGPT/ALT 14 U/L (10-49); TRIGLYCERIDES 96 mg/dl (<150)
== END | disposition home or self-care (01) ==
LOC: LAB 09:16
PROVIDERS: ATTEND Physician Assistant
DX: M25.521 Pain in right elbow (principal); M25.561 Pain in right knee; R76.8 Other specified abnormal immunological findings in serum; G62.9 Polyneuropathy, unspecified; M25.512 Pain in left shoulder

== ENCOUNTER → 2022-05-29 | Day surgery (SDC) | payer BC ==
[2022-05-28 15:38] LABS: BUN 16 mg/dl (9-23); CHLORIDE 107 mmol/L (98-107)
[~2022-05-29] VITALS: Ht 175.2 cm; Wt 77.1 kg
[2022-05-29 08:02] VITALS: BP 104/58
[2022-05-29 09:25] VITALS: BP 97/46
[2022-05-29 09:40] VITALS: BP 98/49
[2022-05-29 09:53] VITALS: BP 95/63
== END | disposition home or self-care (01) ==
LOC: SDC 05-26 09:30
PROVIDERS: ATTEND Orthopaedic Surgery
DX: G56.03 Carpal tunnel syndrome, bilateral upper limbs (principal); G62.9 Polyneuropathy, unspecified; I10 Essential (primary) hypertension; E78.00 Pure hypercholesterolemia, unspecified; J45.909 Unspecified asthma, uncomplicated; F17.210 Nicotine dependence, cigarettes, uncomplicated; Z79.899 Other long term (current) drug therapy

== ENCOUNTER 2022-06-23 15:53 | Emergency (ER) | payer BC ==
[~2022-06-23] VITALS: Ht 175.2 cm; Wt 77.1 kg
[2022-06-23 17:42] LABS: BASO % 0.4 % (0.0-1.0); EOS % 0.4 % (1.0-4.0); HEMATOCRIT 38.7 % (42.0-52.0); LYMPH # 3.4 10*3/uL (1.3-4.4); MEAN CELL VOLUME 88.8 fl (80.0-94.0); MEAN CORPUSCULAR HGB CONC 34.9 g/dl (33.0-37.0); MEAN PLATELET VOLUME 10.3 fl (9.6-12.3); MONO # 1.1 10*3/uL (0.1-1.0); MONO % 10.3 % (3.0-9.0); NEUT # 5.8 10*3/uL (2.3-7.9); NEUT % 55.8 % (47.0-73.0); PLATELET COUNT AUTOMATED 235 10*3/uL (130-400); RED BLOOD COUNT 4.36 10*6/uL (4.50-5.90); RED CELL DISTRI WIDTH 13.8 % (0-14.5); WHITE BLOOD COUNT 10.4 10*3/uL (4.8-10.8)
[2022-06-23 17:59] LABS: ALKALINE PHOSPHATASE 97 U/L (46-116); BUN 13 mg/dl (9-23); CHLORIDE 103 mmol/L (98-107); LIPASE 103 U/L (12-53); POTASSIUM 3.6 mmol/L (3.4-5.1); SGPT/ALT 18 U/L (10-49); TOTAL PROTEIN 7.7 gm/dL (6.0-8.0)
[2022-06-23] MEDS ORDERED: Ondansetron4 MG PO (18:13)
== END 2022-06-23 18:32 | disposition home or self-care (01) ==
LOC: ED 15:53
PROVIDERS: Emergency Medicine
DX: R11.2 Nausea with vomiting, unspecified (principal); Z79.899 Other long term (current) drug therapy; Z98.890 Other specified postprocedural states; Z87.891 Personal history of nicotine dependence

== ENCOUNTER 2022-06-26 10:21 | Emergency (ER) | payer BC ==
[~2022-06-26] VITALS: Wt 72.6 kg
[~2022-06-26 10:21] MED LIST changes: +Ondansetron4 MG PO
[2022-06-26 12:00] LABS: BASO % 0.3 % (0.0-1.0); EOS # 0.1 10*3/uL (0.0-0.4); EOS % 0.6 % (1.0-4.0); HEMATOCRIT 38.7 % (42.0-52.0); LYMPH # 3.4 10*3/uL (1.3-4.4); LYMPH % 38.7 % (27.0-41.0); MEAN CELL VOLUME 87.8 fl (80.0-94.0); MEAN CORPUSCULAR HGB 31.7 pg (27.0-31.0); MEAN CORPUSCULAR HGB CONC 36.2 g/dl (33.0-37.0); MEAN PLATELET VOLUME 10.2 fl (9.6-12.3); MONO # 0.9 10*3/uL (0.1-1.0); MONO % 10.7 % (3.0-9.0); NEUT # 4.3 10*3/uL (2.3-7.9); NEUT % 49.5 % (47.0-73.0); PLATELET COUNT AUTOMATED 236 10*3/uL (130-400); RED BLOOD COUNT 4.41 10*6/uL (4.50-5.90); RED CELL DISTRI WIDTH 13.2 % (0-14.5); WHITE BLOOD COUNT 8.7 10*3/uL (4.8-10.8)
[2022-06-26 12:16] LABS: ALKALINE PHOSPHATASE 86 U/L (46-116); BUN 8 mg/dl (9-23); CHLORIDE 100 mmol/L (98-107); LIPASE 41 U/L (12-53); POTASSIUM 3.4 mmol/L (3.4-5.1); SGPT/ALT 17 U/L (10-49); TOTAL PROTEIN 7.2 gm/dL (6.0-8.0)
[2022-06-26 12:22] LABS: ACT PARTIAL THROMBO TIME 24.5 SECONDS (20.0-32.1); INTERNATIONAL NORM RATIO 1.1 (2.0-3.5)
[2022-06-26 13:40] LABS: BILIRUBIN Negative (Negative); BLOOD Negative (Negative); CLARITY Clear (Clear); COLOR Yellow (Yellow); GLUCOSE Negative (Negative); KETONE 1+ (Negative); LEUKO ESTERASE Negative (Negative); NITRITE Negative (Negative); SPECIFIC GRAVITY <= 1.005 (1.001-1.030)
[2022-06-26 13:54] LABS: BACTERIA TRACE; EPITHELIAL CELLS 0-2; RBC 0-2 rbc/hpf (0-2); WBC 0-2 wbc/hpf (0-5)
[2022-06-26] MEDS ORDERED: ONDANSETRON4 MG SL (14:54)
== END 2022-06-26 15:05 | disposition home or self-care (01) ==
LOC: ED 10:21
PROVIDERS: Emergency Medicine
DX: R11.2 Nausea with vomiting, unspecified (principal); I10 Essential (primary) hypertension; E78.5 Hyperlipidemia, unspecified; Z98.890 Other specified postprocedural states; Z87.891 Personal history of nicotine dependence; F12.10 Cannabis abuse, uncomplicated

== ENCOUNTER 2022-09-02 17:45 | Emergency (ER) | payer BC ==
[~2022-09-02] VITALS: Ht 175.2 cm; Wt 77.1 kg
[~2022-09-02 17:45] MED LIST changes: +ONDANSETRON4 MG SL
[2022-09-02 19:43] LABS: BASO % 0.3 % (0.0-1.0); EOS % 0.1 % (1.0-4.0); HEMATOCRIT 40.6 % (42.0-52.0); LYMPH % 34.2 % (27.0-41.0); MEAN CELL VOLUME 86.4 fl (80.0-94.0); MEAN CORPUSCULAR HGB CONC 34.7 g/dl (33.0-37.0); MEAN PLATELET VOLUME 9.8 fl (9.6-12.3); MONO # 1.4 10*3/uL (0.1-1.0); MONO % 11.6 % (3.0-9.0); NEUT # 6.4 10*3/uL (2.3-7.9); NEUT % 53.6 % (47.0-73.0); PLATELET COUNT AUTOMATED 299 10*3/uL (130-400); RED CELL DISTRI WIDTH 13.2 % (0-14.5); WHITE BLOOD COUNT 11.8 10*3/uL (4.8-10.8)
[2022-09-02 20:02] LABS: ALKALINE PHOSPHATASE 112 U/L (46-116); BUN 21 mg/dl (9-23); CHLORIDE 104 mmol/L (98-107); LIPASE 40 U/L (12-53); POTASSIUM 3.7 mmol/L (3.4-5.1); SGPT/ALT 19 U/L (10-49); TOTAL PROTEIN 8.2 gm/dL (6.0-8.0)
[2022-09-02] MEDS ORDERED: ONDANSETRON4 MG SL (23:36)
== END 2022-09-02 23:46 | disposition home or self-care (01) ==
LOC: ED 17:45
PROVIDERS: Internal Medicine
DX: R11.15 Cyclical vomiting syndrome unrelated to migraine (principal); E80.7 Disorder of bilirubin metabolism, unspecified; I10 Essential (primary) hypertension; E78.49 Other hyperlipidemia; Z98.890 Other specified postprocedural states; F12.10 Cannabis abuse, uncomplicated; F17.200 Nicotine dependence, unspecified, uncomplicated

== ENCOUNTER → 2022-11-03 | Outpatient (CLI) | payer BC ==
[2022-11-03 17:55] LABS: BASO # 0.1 10*3/uL (0.0-0.1); BASO % 0.8 % (0.0-1.0); EOS # 0.2 10*3/uL (0.0-0.4); EOS % 2.4 % (1.0-4.0); HEMATOCRIT 39.1 % (42.0-52.0); LYMPH # 4.1 10*3/uL (1.3-4.4); LYMPH % 41.2 % (27.0-41.0); MEAN CELL VOLUME 92.4 fl (80.0-94.0); MEAN CORPUSCULAR HGB 31.2 pg (27.0-31.0); MEAN CORPUSCULAR HGB CONC 33.8 g/dl (33.0-37.0); MEAN PLATELET VOLUME 9.8 fl (9.6-12.3); MONO # 0.9 10*3/uL (0.1-1.0); MONO % 9.2 % (3.0-9.0); NEUT # 4.6 10*3/uL (2.3-7.9); NEUT % 46.3 % (47.0-73.0); PLATELET COUNT AUTOMATED 259 10*3/uL (130-400); RED BLOOD COUNT 4.23 10*6/uL (4.50-5.90); RED CELL DISTRI WIDTH 15.2 % (0-14.5); WHITE BLOOD COUNT 9.9 10*3/uL (4.8-10.8)
[2022-11-03 18:22] LABS: ALKALINE PHOSPHATASE 93 U/L (46-116); BUN 12 mg/dl (9-23); CHLORIDE 107 mmol/L (98-107); POTASSIUM 3.9 mmol/L (3.4-5.1); SGPT/ALT 15 U/L (10-49)
== END | disposition home or self-care (01) ==
LOC: LAB 17:34
PROVIDERS: ATTEND Internal Medicine Rheumatology
DX: M05.9 Rheumatoid arthritis with rheumatoid factor, unspecified (principal); Z79.899 Other long term (current) drug therapy

== ENCOUNTER 2022-11-11 10:31 | Emergency (ER) | payer BC ==
[~2022-11-11] VITALS: Wt 73.9 kg
[2022-11-11] MEDS ORDERED: FOLIC ACID0.8 M1 PO (10:50)
[2022-11-11] MEDS ORDERED: METHOTREXATE2.5 MG PO (10:51)
[2022-11-11 11:11] LABS: BASO % 0.2 % (0.0-1.0); EOS % 0.1 % (1.0-4.0); HEMATOCRIT 40.3 % (42.0-52.0); LYMPH # 2.5 10*3/uL (1.3-4.4); LYMPH % 21.5 % (27.0-41.0); MEAN CORPUSCULAR HGB CONC 35.2 g/dl (33.0-37.0); MEAN PLATELET VOLUME 10.1 fl (9.6-12.3); MONO % 8.7 % (3.0-9.0); NEUT # 8.2 10*3/uL (2.3-7.9); NEUT % 69.2 % (47.0-73.0); PLATELET COUNT AUTOMATED 266 10*3/uL (130-400); RED BLOOD COUNT 4.58 10*6/uL (4.50-5.90); WHITE BLOOD COUNT 11.8 10*3/uL (4.8-10.8)
[2022-11-11 11:25] LABS: ACT PARTIAL THROMBO TIME 24.2 SECONDS (20.0-32.1); INTERNATIONAL NORM RATIO 1.1 (2.0-3.5)
[2022-11-11 11:46] LABS: ALKALINE PHOSPHATASE 100 U/L (46-116); BUN 13 mg/dl (9-23); CHLORIDE 103 mmol/L (98-107); LIPASE 57 U/L (12-53); POTASSIUM 3.4 mmol/L (3.4-5.1); SGPT/ALT 18 U/L (10-49); TOTAL PROTEIN 7.6 gm/dL (6.0-8.0)
[2022-11-11 13:13] LABS: BILIRUBIN Negative (Negative); BLOOD Negative (Negative); CLARITY Clear (Clear); COLOR Dark Yellow (Yellow); GLUCOSE Negative (Negative); KETONE 2+ (Negative); LEUKO ESTERASE Negative (Negative); NITRITE Negative (Negative); PH 6.5 (4.5-8.0); SPECIFIC GRAVITY >= 1.030 (1.001-1.030)
[2022-11-11 13:21] LABS: MUCOUS 1+
[2022-11-11 13:22] LABS: BACTERIA 1+
[2022-11-11] MEDS ORDERED: ONDANSETRON4 MG SL (13:52)
== END 2022-11-11 13:55 | disposition home or self-care (01) ==
LOC: ED 10:31
PROVIDERS: Emergency Medicine
DX: R11.2 Nausea with vomiting, unspecified (principal); I10 Essential (primary) hypertension; E78.5 Hyperlipidemia, unspecified; Z98.890 Other specified postprocedural states; F12.10 Cannabis abuse, uncomplicated; F17.200 Nicotine dependence, unspecified, uncomplicated

== ENCOUNTER → 2023-03-17 | Outpatient (CLI) | payer BC ==
[~2023-03-17] MED LIST changes: +FOLIC ACID0.8 M1 PO; +METHOTREXATE2.5 MG PO
[2023-03-17 16:47] LABS: BASO # 0.1 10*3/uL (0.0-0.1); BASO % 0.8 % (0.0-1.0); EOS # 0.2 10*3/uL (0.0-0.4); EOS % 2.6 % (1.0-4.0); HEMATOCRIT 39.3 % (42.0-52.0); LYMPH # 3.9 10*3/uL (1.3-4.4); LYMPH % 42.6 % (27.0-41.0); MEAN CELL VOLUME 94.9 fl (80.0-94.0); MEAN CORPUSCULAR HGB 32.4 pg (27.0-31.0); MEAN CORPUSCULAR HGB CONC 34.1 g/dl (33.0-37.0); MEAN PLATELET VOLUME 9.6 fl (9.6-12.3); MONO # 0.9 10*3/uL (0.1-1.0); MONO % 9.4 % (3.0-9.0); NEUT # 4.1 10*3/uL (2.3-7.9); NEUT % 44.4 % (47.0-73.0); PLATELET COUNT AUTOMATED 279 10*3/uL (130-400); RED BLOOD COUNT 4.14 10*6/uL (4.50-5.90); RED CELL DISTRI WIDTH 13.7 % (0-14.5); WHITE BLOOD COUNT 9.2 10*3/uL (4.8-10.8)
[2023-03-17 17:19] LABS: ALKALINE PHOSPHATASE 98 U/L (46-116); BUN 13 mg/dl (9-23); CHLORIDE 108 mmol/L (98-107); POTASSIUM 4.1 mmol/L (3.4-5.1); SGPT/ALT 21 U/L (5-49); TOTAL PROTEIN 7.3 gm/dL (6.0-8.0)
== END | disposition home or self-care (01) ==
LOC: LAB 16:23
PROVIDERS: ATTEND Internal Medicine Rheumatology
DX: M05.9 Rheumatoid arthritis with rheumatoid factor, unspecified (principal); Z79.899 Other long term (current) drug therapy

== ENCOUNTER 2023-03-27 21:36 | Emergency (ER) | payer BC ==
[~2023-03-27] VITALS: Ht 175.2 cm; Wt 74.8 kg
== END 2023-03-27 22:13 | disposition home or self-care (01) ==
LOC: ED 21:36
DX: S30.861A Insect bite (nonvenomous) of abdominal wall, initial encounter (principal); I10 Essential (primary) hypertension; E78.5 Hyperlipidemia, unspecified; Z98.890 Other specified postprocedural states; F17.200 Nicotine dependence, unspecified, uncomplicated; F12.10 Cannabis abuse, uncomplicated; W57.XXXA Bitten or stung by nonvenomous insect and other nonvenomous arthropods, initial encounter; Y93.89 Activity, other specified; Y92.89 Other specified places as the place of occurrence of the external cause; Y99.8 Other external cause status

== ENCOUNTER → 2023-05-02 | Outpatient (CLI) | payer BC ==
[2023-05-02 10:58] LABS: HEMATOCRIT 42.3 % (42.0-52.0); MEAN CELL VOLUME 96.4 fl (80.0-94.0); MEAN CORPUSCULAR HGB 31.9 pg (27.0-31.0); MEAN CORPUSCULAR HGB CONC 33.1 g/dl (33.0-37.0); MEAN PLATELET VOLUME 9.5 fl (9.6-12.3); RED BLOOD COUNT 4.39 10*6/uL (4.50-5.90); RED CELL DISTRI WIDTH 14.3 % (0-14.5); WHITE BLOOD COUNT 5.8 10*3/uL (4.8-10.8)
[2023-05-02 11:23] LABS: ALKALINE PHOSPHATASE 92 U/L (46-116); BUN 12 mg/dl (9-23); CHLORIDE 113 mmol/L (98-107); CHOLESTEROL 172 mg/dL (<200); LDL CHOLESTEROL 121 mg/dL (9-159); POTASSIUM 4.6 mmol/L (3.4-5.1); SGPT/ALT 31 U/L (5-49); TOTAL PROTEIN 7.3 gm/dL (6.0-8.0); TRIGLYCERIDES 61 mg/dl (<150)
== END | disposition home or self-care (01) ==
LOC: LAB 10:41
PROVIDERS: ATTEND Physician Assistant
DX: Z12.5 Encounter for screening for malignant neoplasm of prostate (principal); G62.9 Polyneuropathy, unspecified; M06.9 Rheumatoid arthritis, unspecified; F17.210 Nicotine dependence, cigarettes, uncomplicated; E78.5 Hyperlipidemia, unspecified

== ENCOUNTER → 2023-05-19 | Outpatient (CLI) | payer BC | END | disposition home or self-care (01) | LOC: CT 00:51 | PROVIDERS: ATTEND Physician Assistant | DX: J44.9 Chronic obstructive pulmonary disease, unspecified (principal); R91.1 Solitary pulmonary nodule; F17.210 Nicotine dependence, cigarettes, uncomplicated; I25.10 Atherosclerotic heart disease of native coronary artery without angina pectoris ==

== ENCOUNTER → 2023-07-10 | Outpatient (CLI) | payer BC ==
[2023-07-10 17:11] LABS: BASO # 0.1 10*3/uL (0.0-0.1); BASO % 0.9 % (0.0-1.0); EOS # 0.2 10*3/uL (0.0-0.4); EOS % 3.2 % (1.0-4.0); HEMATOCRIT 40.3 % (42.0-52.0); LYMPH # 3.2 10*3/uL (1.3-4.4); LYMPH % 46.8 % (27.0-41.0); MEAN CELL VOLUME 96.2 fl (80.0-94.0); MEAN CORPUSCULAR HGB CONC 33.3 g/dl (33.0-37.0); MEAN PLATELET VOLUME 9.7 fl (9.6-12.3); MONO # 0.8 10*3/uL (0.1-1.0); MONO % 12.1 % (3.0-9.0); NEUT # 2.5 10*3/uL (2.3-7.9); NEUT % 36.9 % (47.0-73.0); PLATELET COUNT AUTOMATED 237 10*3/uL (130-400); RED BLOOD COUNT 4.19 10*6/uL (4.50-5.90); RED CELL DISTRI WIDTH 14.2 % (0-14.5); WHITE BLOOD COUNT 6.8 10*3/uL (4.8-10.8)
[2023-07-10 17:30] LABS: ALKALINE PHOSPHATASE 90 U/L (46-116); BUN 13 mg/dl (9-23); CHLORIDE 108 mmol/L (98-107); POTASSIUM 4.2 mmol/L (3.4-5.1); SGPT/ALT 26 U/L (5-49); TOTAL PROTEIN 7.1 gm/dL (6.0-8.0)
== END | disposition home or self-care (01) ==
LOC: LAB 16:51
PROVIDERS: ATTEND Internal Medicine Rheumatology
DX: M05.9 Rheumatoid arthritis with rheumatoid factor, unspecified (principal); Z79.899 Other long term (current) drug therapy

== ENCOUNTER 2023-09-03 15:29 | Emergency (ER) | payer BC ==
[~2023-09-03] VITALS: Ht 175.2 cm; Wt 77.1 kg
[2023-09-03] MEDS ORDERED: Metoclopramide Hydrochloride 10 MG/2 ML AMP IV ONE (16:00)
[2023-09-03] MEDS ORDERED: diphenhydrAMINE hydrochloride 50 MG/ML VIAL IV ONE (16:00)
[2023-09-03] MEDS ORDERED: FAMOTIDINE 50 ML IV ONE (16:00)
[2023-09-03] MEDS ORDERED: SODIUM CHLORIDE 0.9% 1,000 ML IV ONE (16:00)
[2023-09-03 16:10] LABS: BASO % 0.4 % (0.0-1.0); EOS # 0.1 10*3/uL (0.0-0.4); EOS % 0.9 % (1.0-4.0); HEMATOCRIT 39.7 % (42.0-52.0); LYMPH # 2.6 10*3/uL (1.3-4.4); LYMPH % 33.4 % (27.0-41.0); MEAN CELL VOLUME 95.2 fl (80.0-94.0); MEAN CORPUSCULAR HGB 32.6 pg (27.0-31.0); MEAN CORPUSCULAR HGB CONC 34.3 g/dl (33.0-37.0); MEAN PLATELET VOLUME 9.8 fl (9.6-12.3); MONO # 1.1 10*3/uL (0.1-1.0); MONO % 14.3 % (3.0-9.0); NEUT # 3.9 10*3/uL (2.3-7.9); NEUT % 50.7 % (47.0-73.0); PLATELET COUNT AUTOMATED 241 10*3/uL (130-400); RED BLOOD COUNT 4.17 10*6/uL (4.50-5.90); RED CELL DISTRI WIDTH 13.6 % (0-14.5); WHITE BLOOD COUNT 7.8 10*3/uL (4.8-10.8)
[2023-09-03 16:39] LABS: BUN 10 mg/dl (9-23); CHLORIDE 103 mmol/L (98-107); LIPASE 32 U/L (12-53); POTASSIUM 3.8 mmol/L (3.4-5.1)
[2023-09-03] MEDS ORDERED: REGLAN10 M1 PO (17:00)
== END 2023-09-03 17:05 | disposition home or self-care (01) ==
LOC: ED 15:29
PROVIDERS: Emergency Medicine
DX: R11.15 Cyclical vomiting syndrome unrelated to migraine (principal); R19.7 Diarrhea, unspecified; I10 Essential (primary) hypertension; E87.5 Hyperkalemia; F12.10 Cannabis abuse, uncomplicated; F17.200 Nicotine dependence, unspecified, uncomplicated; Z98.890 Other specified postprocedural states

== ENCOUNTER 2023-10-05 16:36 | Emergency (ER) | payer BC ==
[~2023-10-05] VITALS: Wt 77.1 kg
[~2023-10-05 16:36] MED LIST changes: +REGLAN10 M1 PO
[2023-10-05] MEDS ORDERED: PREDNISONE20 M1 PO (18:42)
[2023-10-05] MEDS ORDERED: methylPREDNISolone sod succ 125 MG VIAL IM ONE (18:45)
== END 2023-10-05 18:48 | disposition home or self-care (01) ==
LOC: ED 16:36
DX: L23.7 Allergic contact dermatitis due to plants, except food (principal); K21.9 Gastro-esophageal reflux disease without esophagitis; I10 Essential (primary) hypertension; E78.5 Hyperlipidemia, unspecified; E44.1 Mild protein-calorie malnutrition; F17.210 Nicotine dependence, cigarettes, uncomplicated; Z79.899 Other long term (current) drug therapy; Z98.890 Other specified postprocedural states

== ENCOUNTER 2023-10-21 07:31 | Emergency (ER) | payer BC ==
[~2023-10-21] VITALS: Ht 175.2 cm; Wt 77.1 kg
[2023-10-21] MEDS ORDERED: diphenhydrAMINE hydrochloride 50 MG/ML VIAL IV ONE (08:05)
[2023-10-21] MEDS ORDERED: SODIUM CHLORIDE 0.9% 1,000 ML IV ONE (08:05)
[2023-10-21] MEDS ORDERED: Metoclopramide Hydrochloride 10 MG/2 ML AMP IV ONE (08:05)
[2023-10-21 08:16] LABS: BASO # 0.1 10*3/uL (0.0-0.1); BASO % 0.4 % (0.0-1.0); EOS % 0.3 % (1.0-4.0); HEMATOCRIT 41.7 % (42.0-52.0); LYMPH # 2.6 10*3/uL (1.3-4.4); LYMPH % 19.3 % (27.0-41.0); MEAN CELL VOLUME 96.5 fl (80.0-94.0); MEAN CORPUSCULAR HGB 32.9 pg (27.0-31.0); MEAN CORPUSCULAR HGB CONC 34.1 g/dl (33.0-37.0); MEAN PLATELET VOLUME 10.1 fl (9.6-12.3); MONO # 1.4 10*3/uL (0.1-1.0); MONO % 10.1 % (3.0-9.0); NEUT # 9.4 10*3/uL (2.3-7.9); NEUT % 69.5 % (47.0-73.0); PLATELET COUNT AUTOMATED 237 10*3/uL (130-400); RED BLOOD COUNT 4.32 10*6/uL (4.50-5.90); RED CELL DISTRI WIDTH 13.8 % (0-14.5); WHITE BLOOD COUNT 13.5 10*3/uL (4.8-10.8)
[2023-10-21 08:37] LABS: ALKALINE PHOSPHATASE 96 U/L (46-116); BUN 11 mg/dl (9-23); CHLORIDE 105 mmol/L (98-107); LIPASE 24 U/L (12-53); POTASSIUM 3.6 mmol/L (3.4-5.1); SGPT/ALT 18 U/L (5-49); TOTAL PROTEIN 7.4 gm/dL (6.0-8.0)
[2023-10-21 10:51] LABS: BILIRUBIN 1+ (Negative); BLOOD Negative (Negative); CLARITY Clear (Clear); COLOR Dark Yellow (Yellow); GLUCOSE Negative (Negative); KETONE 1+ (Negative); LEUKO ESTERASE Trace (Negative); NITRITE Negative (Negative); SPECIFIC GRAVITY >= 1.030 (1.001-1.030)
[2023-10-21 10:57] LABS: URINE AMPHETAMINES Negative (1000ng/ml); URINE BARBITURATES Negative (200ng/ml); URINE BENZODIAZEPINES Negative (200ng/ml); URINE CANNABINOIDS (THC) Positive (50ng/ml); URINE COCAINE Negative (300ng/ml); URINE METHADONE Negative (300ng/ml); URINE OPIATES Negative (300ng/ml); URINE PHENCYCLIDINE Negative (25ng/ml)
[2023-10-21] MEDS ORDERED: REGLAN10 M1 PO (10:59)
[2023-10-21 11:07] LABS: BACTERIA TRACE; MUCOUS 1+
== END 2023-10-21 11:14 | disposition home or self-care (01) ==
LOC: ED 07:31
PROVIDERS: Internal Medicine
DX: R11.15 Cyclical vomiting syndrome unrelated to migraine (principal); F12.10 Cannabis abuse, uncomplicated; R11.2 Nausea with vomiting, unspecified; F17.200 Nicotine dependence, unspecified, uncomplicated; Z79.899 Other long term (current) drug therapy; Z98.890 Other specified postprocedural states

== ENCOUNTER 2023-12-22 09:35 | Emergency (ER) | payer BC ==
[~2023-12-22] VITALS: Ht 175.2 cm; Wt 77.1 kg
[2023-12-22] MEDS ORDERED: diphenhydrAMINE hydrochloride 50 MG/ML VIAL IV ONE (11:35)
[2023-12-22] MEDS ORDERED: Metoclopramide Hydrochloride 10 MG/2 ML AMP IV ONE (11:35)
[2023-12-22] MEDS ORDERED: SODIUM CHLORIDE 0.9% 1,000 ML IV ONE (11:35)
[2023-12-22 11:54] LABS: BASO % 0.3 % (0.0-1.0); EOS % 0.2 % (1.0-4.0); HEMATOCRIT 40.6 % (42.0-52.0); LYMPH # 3.1 10*3/uL (1.3-4.4); LYMPH % 27.8 % (27.0-41.0); MEAN CELL VOLUME 94.2 fl (80.0-94.0); MEAN CORPUSCULAR HGB 32.3 pg (27.0-31.0); MEAN CORPUSCULAR HGB CONC 34.2 g/dl (33.0-37.0); MEAN PLATELET VOLUME 10.3 fl (9.6-12.3); MONO # 1.4 10*3/uL (0.1-1.0); MONO % 12.1 % (3.0-9.0); NEUT # 6.7 10*3/uL (2.3-7.9); NEUT % 59.3 % (47.0-73.0); PLATELET COUNT AUTOMATED 261 10*3/uL (130-400); RED BLOOD COUNT 4.31 10*6/uL (4.50-5.90); WHITE BLOOD COUNT 11.2 10*3/uL (4.8-10.8)
[2023-12-22 12:16] LABS: ALKALINE PHOSPHATASE 97 U/L (46-116); BUN 12 mg/dl (9-23); CHLORIDE 103 mmol/L (98-107); LIPASE 69 U/L (12-53); POTASSIUM 3.3 mmol/L (3.4-5.1); SGPT/ALT 21 U/L (5-49); TOTAL PROTEIN 7.4 gm/dL (6.0-8.0)
[2023-12-22] MEDS ORDERED: POTASSIUM CHLORIDE 20 MEQ TAB PO ONE (12:55)
[2023-12-22] MEDS ORDERED: MIRALAX POWDER17 G1 PO (13:21)
[2023-12-22] MEDS ORDERED: Ondansetron4 MG PO (13:21)
== END 2023-12-22 13:56 | disposition home or self-care (01) ==
LOC: ED 09:35
PROVIDERS: Nurse Practitioner
DX: R11.15 Cyclical vomiting syndrome unrelated to migraine (principal); K59.00 Constipation, unspecified; I10 Essential (primary) hypertension; E78.5 Hyperlipidemia, unspecified; F12.10 Cannabis abuse, uncomplicated; F17.200 Nicotine dependence, unspecified, uncomplicated; Z98.890 Other specified postprocedural states

== ENCOUNTER 2024-03-29 11:09 | Emergency (ER) | payer BC ==
[~2024-03-29] VITALS: Ht 175.2 cm; Wt 77.1 kg
[~2024-03-29 11:09] MED LIST changes: +MIRALAX POWDER17 G1 PO
[2024-03-29] MEDS ORDERED: SODIUM CHLORIDE 0.9% 1,000 ML IV ONE (11:30)
[2024-03-29] MEDS ORDERED: Ondansetron Hydrochloride 4 MG/2 ML VIAL IV ONE (11:30)
[2024-03-29] MEDS ORDERED: diphenhydrAMINE hydrochloride 50 MG/ML VIAL IV ONE (11:30)
[2024-03-29] MEDS ORDERED: Metoclopramide Hydrochloride 10 MG/2 ML VIAL IV ONE (11:40)
[2024-03-29 11:59] LABS: BASO % 0.2 % (0.0-1.0); EOS % 0.1 % (1.0-4.0); HEMATOCRIT 39.6 % (42.0-52.0); MEAN CELL VOLUME 92.3 fl (80.0-94.0); MEAN CORPUSCULAR HGB 31.9 pg (27.0-31.0); MEAN CORPUSCULAR HGB CONC 34.6 g/dl (33.0-37.0); MEAN PLATELET VOLUME 10.6 fl (9.6-12.3); MONO # 1.3 10*3/uL (0.1-1.0); MONO % 11.1 % (3.0-9.0); NEUT # 7.5 10*3/uL (2.3-7.9); NEUT % 64.2 % (47.0-73.0); PLATELET COUNT AUTOMATED 213 10*3/uL (130-400); RED BLOOD COUNT 4.29 10*6/uL (4.50-5.90); RED CELL DISTRI WIDTH 13.9 % (0-14.5); WHITE BLOOD COUNT 11.6 10*3/uL (4.8-10.8)
[2024-03-29 12:17] LABS: BUN 15 mg/dl (9-23); CHLORIDE 103 mmol/L (98-107); POTASSIUM 3.8 mmol/L (3.4-5.1)
[2024-03-29] MEDS ORDERED: Ondansetron4 MG PO (12:34)
== END 2024-03-29 13:08 | disposition home or self-care (01) ==
LOC: ED 11:09
PROVIDERS: Physician Assistant Medical
DX: R11.15 Cyclical vomiting syndrome unrelated to migraine (principal); K21.9 Gastro-esophageal reflux disease without esophagitis; I10 Essential (primary) hypertension; F17.200 Nicotine dependence, unspecified, uncomplicated; Z79.899 Other long term (current) drug therapy

== ENCOUNTER → 2024-04-19 | Outpatient (CLI) | payer BC ==
[2024-04-19 12:45] LABS: HEMATOCRIT 42.6 % (42.0-52.0); MEAN CELL VOLUME 95.9 fl (80.0-94.0); MEAN CORPUSCULAR HGB 31.8 pg (27.0-31.0); MEAN CORPUSCULAR HGB CONC 33.1 g/dl (33.0-37.0); MEAN PLATELET VOLUME 10.6 fl (9.6-12.3); RED BLOOD COUNT 4.44 10*6/uL (4.50-5.90); RED CELL DISTRI WIDTH 14.1 % (0-14.5); WHITE BLOOD COUNT 6.3 10*3/uL (4.8-10.8)
[2024-04-19 13:20] LABS: ALKALINE PHOSPHATASE 100 U/L (46-116); BUN 11 mg/dl (9-23); CHLORIDE 108 mmol/L (98-107); CHOLESTEROL 153 mg/dL (<200); LDL CHOLESTEROL 96 mg/dL (9-159); SGPT/ALT 24 U/L (5-49); TOTAL PROTEIN 7.1 gm/dL (6.0-8.0); TRIGLYCERIDES 97 mg/dl (<150)
== END | disposition home or self-care (01) ==
LOC: LAB 12:02
PROVIDERS: ATTEND Physician Assistant
DX: Z12.5 Encounter for screening for malignant neoplasm of prostate (principal); N40.0 Benign prostatic hyperplasia without lower urinary tract symptoms; E78.5 Hyperlipidemia, unspecified; F17.210 Nicotine dependence, cigarettes, uncomplicated; G62.9 Polyneuropathy, unspecified; M06.9 Rheumatoid arthritis, unspecified

== ENCOUNTER → 2024-06-01 | Outpatient (CLI) | payer BC | END | disposition home or self-care (01) | LOC: CT 14:54 | PROVIDERS: ATTEND Physician Assistant | DX: Z12.2 Encounter for screening for malignant neoplasm of respiratory organs (principal); J43.9 Emphysema, unspecified; J84.9 Interstitial pulmonary disease, unspecified; F17.210 Nicotine dependence, cigarettes, uncomplicated; I25.10 Atherosclerotic heart disease of native coronary artery without angina pectoris ==

== ENCOUNTER 2024-07-18 17:34 | Emergency (ER) | payer BC ==
[~2024-07-18] VITALS: Ht 175.2 cm; Wt 81.6 kg
[2024-07-18] MEDS ORDERED: SODIUM CHLORIDE 0.9% 1,000 ML IV ONE (19:10)
[2024-07-18] MEDS ORDERED: Ondansetron Hydrochloride 4 MG/2 ML VIAL IV ONE (19:10)
[2024-07-18 19:15] LABS: BASO % 0.2 % (0.0-1.0); HEMATOCRIT 38.3 % (42.0-52.0); MEAN CELL VOLUME 93.4 fl (80.0-94.0); MEAN CORPUSCULAR HGB CONC 34.2 g/dl (33.0-37.0); MEAN PLATELET VOLUME 10.1 fl (9.6-12.3); MONO # 0.7 10*3/uL (0.1-1.0); MONO % 6.7 % (3.0-9.0); NEUT # 8.1 10*3/uL (2.3-7.9); NEUT % 79.6 % (47.0-73.0); PLATELET COUNT AUTOMATED 288 10*3/uL (130-400); RED CELL DISTRI WIDTH 13.4 % (0-14.5); WHITE BLOOD COUNT 10.1 10*3/uL (4.8-10.8)
[2024-07-18 20:19] LABS: ALKALINE PHOSPHATASE 97 U/L (46-116); BUN 14 mg/dl (9-23); CHLORIDE 111 mmol/L (98-107); POTASSIUM 4.1 mmol/L (3.4-5.1); SGPT/ALT 17 U/L (5-49); TOTAL PROTEIN 7.9 gm/dL (6.0-8.0)
[2024-07-18] MEDS ORDERED: Ondansetron4 MG PO (21:37)
[2024-07-18] MEDS ORDERED: ZITHROMAX250 MG PO (21:37)
[2024-07-18] MEDS ORDERED: PREDNISONE20 M1 PO (21:38)
[2024-07-18] MEDS ORDERED: AZITHROMYCIN 250 MG TAB PO ONE (21:40)
[2024-07-18] MEDS ORDERED: predniSONE 20 MG TAB PO ONE (21:40)
== END 2024-07-18 21:52 | disposition home or self-care (01) ==
LOC: ED 17:34
PROVIDERS: Nurse Practitioner Family
DX: J98.4 Other disorders of lung (principal); Z20.822 Contact with and (suspected) exposure to COVID-19; R11.2 Nausea with vomiting, unspecified; R19.7 Diarrhea, unspecified; F17.200 Nicotine dependence, unspecified, uncomplicated; Z79.899 Other long term (current) drug therapy

== ENCOUNTER 2024-07-21 10:20 | Emergency (ER) | payer BC ==
[~2024-07-21] VITALS: Ht 175.2 cm; Wt 81.6 kg
[~2024-07-21 10:20] MED LIST changes: +ZITHROMAX250 MG PO
[2024-07-21] MEDS ORDERED: SODIUM CHLORIDE 0.9% 1,000 ML IV ONE (10:50)
[2024-07-21] MEDS ORDERED: Metoclopramide Hydrochloride 10 MG/2 ML VIAL IV ONE (10:55)
[2024-07-21] MEDS ORDERED: diphenhydrAMINE hydrochloride 50 MG/ML VIAL IV ONE (10:55)
[2024-07-21] MEDS ORDERED: Ondansetron Hydrochloride 4 MG/2 ML VIAL IV ONE (10:55)
[2024-07-21 11:10] LABS: BASO % 0.2 % (0.0-1.0); EOS % 0.1 % (1.0-4.0); HEMATOCRIT 37.3 % (42.0-52.0); MEAN CELL VOLUME 94.9 fl (80.0-94.0); MEAN CORPUSCULAR HGB 32.1 pg (27.0-31.0); MEAN CORPUSCULAR HGB CONC 33.8 g/dl (33.0-37.0); MEAN PLATELET VOLUME 10.1 fl (9.6-12.3); MONO # 1.2 10*3/uL (0.1-1.0); MONO % 12.3 % (3.0-9.0); NEUT # 5.4 10*3/uL (2.3-7.9); NEUT % 53.8 % (47.0-73.0); PLATELET COUNT AUTOMATED 269 10*3/uL (130-400); RED BLOOD COUNT 3.93 10*6/uL (4.50-5.90); RED CELL DISTRI WIDTH 13.4 % (0-14.5)
[2024-07-21 11:30] LABS: BUN 10 mg/dl (9-23); CHLORIDE 103 mmol/L (98-107); POTASSIUM 3.5 mmol/L (3.4-5.1)
== END 2024-07-21 13:03 | disposition home or self-care (01) ==
LOC: ED 10:20
PROVIDERS: Nurse Practitioner Family
DX: R11.15 Cyclical vomiting syndrome unrelated to migraine (principal); R06.2 Wheezing; K21.9 Gastro-esophageal reflux disease without esophagitis; F17.200 Nicotine dependence, unspecified, uncomplicated; Z79.899 Other long term (current) drug therapy

== ENCOUNTER → 2024-08-01 | Day surgery (SDC) | payer BC ==
[~2024-08-01] VITALS: Ht 175.2 cm; Wt 79.4 kg
[2024-08-01] VITALS (9 sets, daily range): BP systolic 125–146; BP diastolic 59–86
[~2024-08-01] MED LIST changes: +Dexamethasone Sodium Phospha 4 MG/ML VIAL IV ONE; +Dexamethasone Sodium Phospha 4 MG/ML VIAL ONE; +HALOPERIDOL LACTATE IV ONE; +Haloperidol Lactate 5 MG/ML AMP IV ONE; +Lactated Ringer's Solution 1,000 ML IV ONE; +Lactated Ringer's Solution 1,000 ML IV SCH; +Lidocaine Hydrochloride 2% 5 ML SDV IV ONE; +Ondansetron Hydrochloride 4 MG/2 ML VIAL IV ONE; +PROPOFOL 200 MG/20 ML VIAL IV ONE
== END | disposition home or self-care (01) ==
LOC: SDC 07-29 09:30
PROVIDERS: ATTEND Surgery
DX: Z12.11 Encounter for screening for malignant neoplasm of colon (principal); D12.3 Benign neoplasm of transverse colon; K57.30 Diverticulosis of large intestine without perforation or abscess without bleeding; I10 Essential (primary) hypertension; E78.00 Pure hypercholesterolemia, unspecified; K21.9 Gastro-esophageal reflux disease without esophagitis; F41.9 Anxiety disorder, unspecified; F32.A Depression, unspecified; K64.9 Unspecified hemorrhoids; Z80.0 Family history of malignant neoplasm of digestive organs; Z86.0100 Personal history of colon polyps, unspecified; Z79.899 Other long term (current) drug therapy

== ENCOUNTER → 2024-08-16 | Outpatient (CLI) | payer BC ==
[~2024-08-16] MED LIST changes: -Dexamethasone Sodium Phospha 4 MG/ML VIAL IV ONE; -Dexamethasone Sodium Phospha 4 MG/ML VIAL ONE; -HALOPERIDOL LACTATE IV ONE; -Haloperidol Lactate 5 MG/ML AMP IV ONE; -Lactated Ringer's Solution 1,000 ML IV ONE; -Lactated Ringer's Solution 1,000 ML IV SCH; -Lidocaine Hydrochloride 2% 5 ML SDV IV ONE; -Ondansetron Hydrochloride 4 MG/2 ML VIAL IV ONE; -PROPOFOL 200 MG/20 ML VIAL IV ONE; +Regadenoson 0.4 MG/5 ML SYR IV ONE
== END | disposition home or self-care (01) ==
LOC: CARD 02:13
PROVIDERS: ATTEND Internal Medicine Cardiovascular Disease
DX: I25.10 Atherosclerotic heart disease of native coronary artery without angina pectoris (principal); R06.02 Shortness of breath

== ENCOUNTER 2024-09-07 06:22 | Emergency (ER) | payer BC ==
[~2024-09-07 06:22] MED LIST changes: -Regadenoson 0.4 MG/5 ML SYR IV ONE
[2024-09-07] MEDS ORDERED: Ondansetron Hydrochloride 4 MG/2 ML VIAL IV ONE (06:30)
[2024-09-07] MEDS ORDERED: SODIUM CHLORIDE 0.9% 1,000 ML IV ONE (06:30)
[2024-09-07 06:45] LABS: BASO % 0.3 % (0.0-1.0); EOS % 0.2 % (1.0-4.0); HEMATOCRIT 40.3 % (42.0-52.0); MEAN CELL VOLUME 91.4 fl (80.0-94.0); MEAN PLATELET VOLUME 10.2 fl (9.6-12.3); NEUT # 5.5 10*3/uL (2.3-7.9); PLATELET COUNT AUTOMATED 285 10*3/uL (130-400); RED BLOOD COUNT 4.41 10*6/uL (4.50-5.90); RED CELL DISTRI WIDTH 14.2 % (0-14.5); WHITE BLOOD COUNT 9.5 10*3/uL (4.8-10.8)
[2024-09-07 08:09] LABS: BUN 12 mg/dl (9-23); CHLORIDE 105 mmol/L (98-107); POTASSIUM 3.5 mmol/L (3.4-5.1)
[2024-09-07] MEDS ORDERED: Ondansetron4 MG PO (08:33)
== END 2024-09-07 08:40 | disposition home or self-care (01) ==
LOC: ED 06:22
PROVIDERS: Internal Medicine
DX: R11.2 Nausea with vomiting, unspecified (principal); F12.90 Cannabis use, unspecified, uncomplicated; I10 Essential (primary) hypertension; E78.5 Hyperlipidemia, unspecified; Z79.899 Other long term (current) drug therapy; Z98.890 Other specified postprocedural states

== ENCOUNTER → 2024-12-03 | Outpatient (CLI) | payer BC ==
[2024-12-03 09:22] LABS: BASO # 0.1 10*3/uL (0.0-0.1); BASO % 0.7 % (0.0-1.0); EOS # 0.2 10*3/uL (0.0-0.4); EOS % 3.3 % (1.0-4.0); MEAN CELL VOLUME 97.9 fl (80.0-94.0); MEAN CORPUSCULAR HGB 31.9 pg (27.0-31.0); MEAN PLATELET VOLUME 10.2 fl (9.6-12.3); MONO # 1.0 10*3/uL (0.1-1.0); MONO % 13.7 % (3.0-9.0); NEUT # 3.1 10*3/uL (2.3-7.9); NEUT % 42.7 % (47.0-73.0); NUCLEATED RED BLOOD CELL 0.0 % (0.0-0.0); NUCLEATED RED BLOOD CELL 0.0 10*3/uL (0.0-0.0); PLATELET COUNT AUTOMATED 214 10*3/uL (130-400); RED CELL DISTRI WIDTH 13.9 % (0-14.5)
[2024-12-03 09:46] LABS: BUN 11 mg/dl (9-23); SGPT/ALT 22 U/L (5-49)
== END | disposition home or self-care (01) ==
LOC: LAB 09:03
PROVIDERS: ATTEND Internal Medicine Rheumatology
DX: M05.9 Rheumatoid arthritis with rheumatoid factor, unspecified (principal)

== ENCOUNTER 2024-12-10 14:43 | Emergency (ER) | payer BC ==
[~2024-12-10] VITALS: Ht 175.2 cm; Wt 77.1 kg
[2024-12-10] MEDS ORDERED: Dexamethasone Sodium Phospha 20 MG/5 ML VIAL IM ONE (15:20)
== END 2024-12-10 16:17 | disposition home or self-care (01) ==
LOC: ED 14:43
DX: T63.441A Toxic effect of venom of bees, accidental (unintentional), initial encounter (principal); L53.0 Toxic erythema; R60.0 Localized edema; F17.200 Nicotine dependence, unspecified, uncomplicated; Z79.899 Other long term (current) drug therapy; Y92.89 Other specified places as the place of occurrence of the external cause